=== PATIENT | male | born 1950 | race Caucasian/White ===

== ENCOUNTER 2017-12-22 16:40 | Emergency (ER) | payer BC, MEDICARE ==
[2017-12-22 17:10] VITALS: BP 123/88
[2017-12-22] MEDS ORDERED: Tetan/Diph/Pertus SYR(Tdap)* 0.5 ML SYR(BOOSTRIX) use SYR IM ONE (17:52)
--- NOTE | 2017-12-22 17:57 | UC ---
Lower Extremity/Ankle HPI - HPI Summary HPI Summary: 67 yo male stepped on a nail about 2 hours ago went thru sneaker minimal pain Td not up to date DM no renal issues - History of Current Complaint Chief Complaint: UCS[place] Stated Complaint: L FOOT SKIN COMLAINT Time Seen by Provider: 12/22/17 17:46 Hx Obtained From: Patient Onset/Duration: Sudden Onset Severity Initially: Mild Severity Currently: None Pain Intensity: 0 Pain Scale Used: 0-10 Numeric Aggravating Factor(s): Standing, Ambulation Alleviating Factor(s): Rest Able to Bear Weight: Yes - Allergies/Home Medications Allergies/Adverse Reactions: Allergies Allergy/AdvReac Type Severity Reaction Status Date / Time codeine AdvReac GI Verified 12/22/17 17:10 Home Medications: Home Medications Albuterol HFA INHALER* [Ventolin HFA Inhaler*] 2 puff INH Q4H PRN 12/22/17 [ History Confirmed 12/22/17] Ascorbic Acid TAB* [Vitamin C TAB*] 500 mg PO DAILY 12/22/17 [History Confirmed 12/22/17] Cholecalciferol (Vitamin D3) [Vitamin D3] 1,000 unit PO DAILY 12/22/17 [History Confirmed 12/22/17] Hydrochlorothiazide TAB* [Hydrodiuril TAB*] 25 mg PO DAILY 12/22/17 [History Confirmed 12/22/17] Losartan Potassium [Cozaar] 25 mg PO BEDTIME 12/22/17 [History Confirmed ] Magnesium Oxide [Magnesium] 250 mg PO DAILY 12/22/17 [History Confirmed 12/22/17 ] [place]il[place]-3 Fatty Acids/Fish Oil [Fish Oil 1200 mg] 1 cap PO DAILY 12/22/17 [ History Confirmed 12/22/17] Tiotropium CAP.INH* [Spiriva CAP.INH*] 2 cap.inh INH BID 12/22/17 [History Confirmed 12/22/17] Vitamin E CAP* 400 unit PO DAILY 12/22/17 [History Confirmed 12/22/17] metFORMIN* [Glucophage 500 MG TAB *] 500 mg PO BEDTIME 12/22/17 [History Confirmed 12/22/17] PMH/Surg Hx/FS Hx/Imm Hx Endocrine History: Diabetes, Dyslipidemia Cardiovascular History: Hypertension Respiratory History: Asthma - Surgical History Surgical History: Yes Surgery Procedure, Year, and Place: hydrocele - Social History Alcohol Use: Occasionally Substance Use Type: None Smoking Status (MU): Former Smoker When Did the Patient Quit Smoking/Using Tobacco: 30+ years ago Review of Systems Constitutional: Negative Skin: Negative Eyes: Negative ENT: Negative Respiratory: Negative Cardiovascular: Negative Gastrointestinal: Negative Genitourinary: Negative Motor: Negative Neurovascular: Negative Musculoskeletal: Negative Neurological: Negative Psychological: Negative Is Patient Immunocompromised?: No All Other Systems Reviewed And Are Negative: Yes Physical Exam Triage Information Reviewed: Yes Appearance: Well-Appearing, No Pain Distress, Well-Nourished Vital Signs: Initial Vital Signs Temp 98.9 F 12/22/17 17:03 Pulse 87 12/22/17 17:03 Resp 18 12/22/17 17:03 BP 123/88 12/22/17 17:03 Pulse Ox 96 12/22/17 17:03 Vital Signs Reviewed: Yes Eyes: Positive: Conjunctiva Clear ENT: Positive: Hearing grossly normal. Negative: Nasal congestion, Nasal drainage, Muffled voice, Hoarse voice Neck: Positive: Supple Respiratory: Positive: Lungs clear, Normal breath sounds, No respiratory distress Cardiovascular: Positive: RRR, No Murmur Musculoskeletal: Positive: ROM Intact, No Edema Neurological: Positive: Alert Psychological Exam: Normal Skin Exam: Other - PW left foot Lower Extremity Course/Dx - Differential Dx/Diagnosis Provider Diagnoses: plantar punture wound left foot Discharge - Sign-Out/Discharge Documenting (check all that apply): Discharge/Admit/Transfer - Discharge Plan Condition: Stable Disposition: HOME Prescriptions: Ciprofloxacin HCl [Cipro] 250 mg PO BID #14 tablet Patient Education Materials: Puncture Wound (ED) Referrals: Partha Wade MD [Primary Care Provider] - 5 Days Additional Instructions: recheck RACHEL for pain/swellling redness - Billing Disposition and Condition Condition: STABLE Disposition: HOME Images Feet (Multiple View): 1 - PW- plantar aspect left foot. normal gait. no tender
== END 2017-12-22 18:05 | disposition home or self-care (01) ==
LOC: UCCORT 16:40
DX: S91.332A Puncture wound without foreign body, left foot, initial encounter (principal); W22.8XXA Striking against or struck by other objects, initial encounter; Y92.9 Unspecified place or not applicable; Z23 Encounter for immunization; Z87.891 Personal history of nicotine dependence; Z88.5 Allergy status to narcotic agent
CPT/HCPCS: 90471; 90715; 99212; G0463

== ENCOUNTER 2018-05-16 13:56 | Emergency (ER) | payer BC ==
--- OUTSIDE RECORDS SUMMARY | 2018-05-16 15:05 | XMS REPORT | Continuity of Care Document ---
:1950 External Reference #:[id number] Author Name Partha Wade MD Address [address] [place] [address] Care Team Providers Name Role Partha Renae MD Primary Care Physician Unavailable Payers Type Date Identification Numbers Payment Provider Subscriber Policy Number: [id number] BCBS Ppo Micky Ordonez PayID: [id number] [address] [address] [place] [address] Advance Directives Description No Information Available Problems Date Description Provider Status Onset: 06/21/2012 Cardiomegaly Partha Wade MD Active Onset: 06/21/2012 Benign hypertensive heart disease without Partha Wade MD Active congestive heart failure Onset: 06/21/2012 Sleep apnea Partha Wade MD Active Onset: 06/21/2012 Benign prostatic hypertrophy with outflow Partha Wade MD Active obstruction Onset: 06/21/2012 Obesity Partha Wade MD Active Onset: 06/21/2012 Impaired fasting glycaemia Partha Wade MD Active Family History Date Family Member(s) Problem(s) Comments Father Heart Disease mi old age Mother Diabetes Mellitus, II Mother Heart Disease Mother Kidney Disease Social History Type Date Description Comments Sex Unknown Tobacco Use Start: Unknown End: Former Cigarette Smoker Unknown ETOH Use Occasionally consumes alcohol Tobacco Use Start: Unknown End: Patient is a former smoker Unknown Smoking Status Reviewed: 05/06/17 Patient is a former smoker Seat Belt/Car Seat Always uses a seat belt Currently Active The patient is currently sexually active Allergies, Adverse Reactions, Alerts Description No Known Drug Allergies Medications Medication Date Status Form Strength Qnty SIG Indications Ordering Provider Shingrix 10/19 Active Suspension 50mcg 2dose 1 dose Rec s intramuscu MD Mauro lar then repeat in 4 month Losartan 10/14 Active Tablets 25mg 90tab 1 by mouth Elyn s every day Ring, Zostavax 07/15 Active Solution [id number]/ 1unit injection Rec 0.65ML s as ordered Ring, Metformin HCL 08/29 Active Tablets 500mg 90tab 1 by mouth s every day Ring, Fish Oil 07/01 Active Capsules 1000mg as Directed Ring, Vitamin E 07/01 Active Capsules 400Unit qday Ring, Hydrochlorothiazi 01/20 Active Tablets 25mg 90tab 1 by mouth Elyn s every day Ring, Fibercon 04/02 Active Tablets 625mg 30tab 2 po qd El s Ring, Tylenol 11/10 Active Tablets 325mg 2 PO prn Ring, Albuterol Active Aerosol 90mcg/Dos 6unit 2 puff qid Unknown Inhalation /0000 e s Spiriva Active Capsules 18mcg 90cap one puff Elyn Handihaler / s every day Ring, Xarelto Active Tablets 20mg 1 by mouth Unknown /0000 every day Rythmol Active Tablets 225mg Unknown /0000 Tramadol HCL 01/28 Hx Tablets 50mg 40tab 1 by mouth s every 6 Ring, - hours as 10/19 [id number] Tramadol HCL 08/21 Hx Tablets 50mg 20tab qid prn s Shoulder Ring, - Pain 05/06 Amlodipine 09/23 Hx Tablets 10mg 90tab 1 by mouth Elyn Besylate s every day Ring, MD - 10/14 Nystatin-Triamcin 09/12 Hx Cream 671299-1. 30gm apply Elyn olone 1Unit/GM- affected Ring, - % area as 05/06 bid Scopolamine 04/11 Hx Patches 0.4mg/ml 5unit aplly 3 Elyn Hydrobromide s hrs before Ring, - travel and 04/25 change q day Amoxicillin 10/09 Hx Capsules 500mg 30cap 1 po tid s x 10 days Ring, MD - 05/09 Tramadol HCL 08/03 Hx Tablets 50mg 60tab 1 po q 6 s hours prn Ring, MD - pain 01/17 Doxycycline 07/06 Hx Capsules 100mg 42cap 1 po bid Elcl s For 3 Ring, MD - Weeks 08/03 Tramadol HCL 06/22 Hx Tablets 50mg 60tab 1 po q 6 s hours prn Ring, MD - pain 08/03 Vitamin C SR 06/30 Hx Capsules ER 500mg 90cap 1 po qd s Ring, MD - 06/30 Amoxicillin 06/30 Hx Capsules 500mg 30cap 1 po tid s x 10 days Ring, MD - 06/21 Scopolamine 03/31 Hx Patches 0.4mg/ml 5unit aplly 3 Elyn Hydrobromide s hrs before Ring, MD - travel and 06/30 change q day Lotrisone 01/20 Hx Lotion 1-0.05% 30ml apply to affected Ring, MD - area bid 06/21 Ceftin 01/20 Hx Tablets 500mg 20tab 1 po bid s Ring, MD - 07/01 Scopalamine Patch 12/11 Hx 0.33MH/24 8unit 1 patch 4 HRS s hrs prior Ring, MD - to travel 01/20 and q 3 days. Percocet 10/31 Hx Tablets 5-325mg 60tab 1 po q 4 s hours if Ring, - needed for 01/20 pain Ceftin 06/27 Hx Tablets 500mg 20tab 1 po bid s Ring, MD - 10/31 Mihai 06/27 Hx Tablets 5-20mg 45tab tab 1/2 by s mouth Ring, - every day 09/23 Fish Oil 04/02 Hx Capsules 1000mg 1 Cap bid Ring, MD - 06/27 Vitamin C 04/02 Hx Tablets 500mg 1 po qd Ring, MD - 06/27 Vitamin D 04/02 Hx Capsules 400Unit qd Ring, MD - 06/27 Vitamin E 04/02 Hx Capsules 400Unit qday Ring, MD Rosales 06/27 Calcium 600 + D 04/02 Hx Tablets 1 po qd Ring, MD Rosales 04/09 Medrol Dosepak 04/02 Hx Tablets 4mg 1tabs use as directed Ring, MD Rosales 04/09 Glucophage 05/12 Hx Tablets 500mg 90tab 1 PO qd s Ring, - 06/05 Doxycycline 05/12 Hx Tablets 100mg 20tab 1 PO bid s prn Ring, - 06/05 Amoxicillin 09/14 Hx Capsules 500mg 30cap 1 po tid s x 10 days Ring, - 09/22 Cortisporin 09/14 Hx Ointment 400U;3.5m 3.5gm as g;55007Z; directed Ring, MD - 10 bid 06/05 Augmentin 02/01 Hx Tablets 875mg;125 14tab 1 po bid 998.20 Remington Giraldo /Reynaldo mg s MD Anel - 02/02 Multivitamins 11/10 Hx Caplets Ring, - 06/27 Glucosamine Franc 11/10 Hx Tablets 1500 100ta 1 PO qd bs Ring, - 06/27 Rhinocort Aqua Hx Suspension 32mcg/Inh 3unit 1 [place] To Unknown Nasal [place] /0000 alation s Each Nare - qd prn 06/05 Symbicort Hx Aerosol 80-4.5mcg 1unit 2 puff bid Unknown /0000 /Act s - 04/25 Ventolin HFA 00 Hx Aerosol 108(90Bas 2 puff Unknown /0000 e) four times - mcg/Act a day as 05/06 Immunizations CPT Code Status Date Vaccine Lot # [id number] Given 10/08/2016 Pneumovax Polyvalent Inj Im [id number] 78613 Given 08/07/2016 Zostavax Q2037 Given 05/11/2016 Influenza Vaccine (Fluvirin) 3 Years Of Age Or Older 40868 Given 08/14/2015 Pneumococcal Conjugate Vaccine 13 Valent For [id number] Intramuscular Use Q2035 Given 04/25/2015 Influenza Virus (Afluria) Split Virus 3 Years Of [id number] Age And Older Q2036 Given 05/26/2013 Flulaval 27044 Given 04/18/2009 Tetanus,Diphtheria,Adut/Adol Pertussis 5433 75364 Given 06/05/2008 Influenza Vaccine 36557 77139 Given 05/31/2007 Influenza Vaccine 49368 65914 Given 05/20/2006 Influenza Vaccine 20041 84240 Given 02/13/1998 DT Immunization DIP/Tet (History Only) Vital Signs Date Vital Result Comment 10/19/2017 12:38pm BP Systolic 136 mmHg BP Diastolic 74 mmHg Height 74 inches 6'2" 05/06/2017 10:56am BP Systolic 110 mmHg BP Diastolic 68 mmHg Respiratory Rate 20 /min Weight 340.00 lb 01/28/2017 8:29am BP Systolic 110 mmHg BP Diastolic 80 mmHg Height 74 inches 6'2" Weight 353.00 lb per patient BMI (Body Mass Index) 45.3 kg/m2 10/08/2016 1:31pm BP Systolic 108 mmHg BP Diastolic 80 mmHg Height 74 inches 6'2" Weight 351.00 lb BMI (Body Mass Index) 45.1 kg/m2 08/21/2016 10:09am BP Systolic 132 mmHg BP Diastolic 80 mmHg 03/26/2016 1:48pm BP Systolic 120 mmHg BP Diastolic 64 mmHg Height 72 inches 6'0" Weight 346.00 lb BMI (Body Mass Index) 46.9 kg/m2 09/12/2015 2:28pm BP Systolic 124 mmHg BP Diastolic 70 mmHg Height 72 inches 6'0" Weight 334.00 lb BMI (Body Mass Index) 45.3 kg/m2 04/25/2015 3:44pm BP Systolic 130 mmHg BP Diastolic 82 mmHg Height 72 inches 6'0" Weight 339.00 lb BMI (Body Mass Index) 46.0 kg/m2 01/17/2015 3:34pm BP Systolic 118 mmHg BP Diastolic 70 mmHg Height 72 inches 6'0" Weight 343.00 lb BMI (Body Mass Index) 46.5 kg/m2 10/09/2014 3:22pm BP Systolic 128 mmHg BP Diastolic 76 mmHg Height 72 inches 6'0" Weight 370.00 lb BMI (Body Mass Index) 50.2 kg/m2 08/29/2014 3:19pm BP Systolic 130 mmHg BP Diastolic 80 mmHg Weight 353.00 lb 05/24/2014 4:34pm BP Systolic 122 mmHg BP Diastolic 78 mmHg 10/09/2013 2:15pm BP Systolic 132 mmHg BP Diastolic 70 mmHg Body Temperature 98.9 F 08/11/2013 2:55pm BP Systolic 122 mmHg BP Diastolic 70 mmHg 08/03/2013 3:46pm BP Systolic 120 mmHg BP Diastolic 70 mmHg Height 72 inches 6'0" Weight 372.00 lb BMI (Body Mass Index) 50.4 kg/m2 07/06/2012 12:05pm BP Systolic 130 mmHg BP Diastolic 80 mmHg Body Temperature 99.3 F 06/21/2012 4:00pm Weight 368.00 lb 06/21/2012 3:56pm BP Systolic 130 mmHg BP Diastolic 78 mmHg Height 72 inches 6'0" Weight 268.00 lb BMI (Body Mass Index) 36.3 kg/m2 06/30/2011 3:48pm BP Systolic 134 mmHg BP Diastolic 78 mmHg Height 72 inches 6'0" Weight 369.00 lb BMI (Body Mass Index) 50.0 kg/m2 12/29/2010 3:18pm BP Systolic 120 mmHg BP Diastolic 74 mmHg Height 72 inches 6'0" Weight 372.00 lb BMI (Body Mass Index) 50.4 kg/m2 07/01/2010 3:14pm BP Systolic 126 mmHg BP Diastolic 88 mmHg Weight 372.00 lb 01/20/2010 3:03pm BP Systolic 130 mmHg BP Diastolic 90 mmHg Weight 377.00 lb 10/31/2009 12:27pm BP Systolic 120 mmHg BP Diastolic 86 mmHg 06/27/2009 2:11pm BP Systolic 158 mmHg BP Diastolic 88 mmHg Height 72 inches 6'0" Weight 370.00 lb BMI (Body Mass Index) 50.2 kg/m2 04/18/2009 4:42pm BP Systolic 144 mmHg BP Diastolic 100 mmHg Weight 360.00 lb 04/09/2009 4:03pm BP Systolic 150 mmHg BP Diastolic 90 mmHg Weight 360.00 lb 04/02/2009 3:23pm BP Systolic 150 mmHg BP Diastolic 100 mmHg Weight 364.00 lb 06/05/2008 2:33pm BP Systolic 140 mmHg BP Diastolic 88 mmHg Height 72 inches 6'0" Weight 364.00 lb BMI (Body Mass Index) 49.4 kg/m2 05/31/2007 3:29pm BP Systolic 152 mmHg BP Diastolic 100 mmHg Height 72 inches 6'0" 05/12/2007 12:36pm BP Systolic 142 mmHg BP Diastolic 92 mmHg Body Temperature 98.5 F Height 72 inches 6'0" 09/22/2006 3:40pm BP Systolic 144 mmHg BP Diastolic 82 mmHg Height 72 inches 6'0" Weight 364.00 lb BMI (Body Mass Index) 49.4 kg/m2 09/14/2006 12:57pm Body Temperature 98.1 F Height 72 inches 6'0" 06/03/2006 3:31pm BP Systolic 138 mmHg BP Diastolic 84 mmHg Height 72 inches 6'0" 05/20/2006 2:58pm BP Systolic 126 mmHg BP Diastolic 70 mmHg Height 72 inches 6'0" Weight 352.00 lb BMI (Body Mass Index) 47.7 kg/m2 02/01/2006 2:26pm BP Systolic 134 mmHg BP Diastolic 80 mmHg Height 72 inches 6'0" 11/18/2005 3:48pm BP Systolic 138 mmHg BP Diastolic 88 mmHg Weight 360.00 lb Results Test Date Facility Test Result H/L Range Note General Health Panel 04/26/2018 [facility] TSH 2.94 mIU/L 0.40-4.50 [address] [facility] [address] [place] [address] [phone] T4,Free 1.0 ng/dL 0.8-1.8 CBC W/ Diff & PLT 04/26/2018 [facility] WBC 5.6 thous/L 3.8-10.8 [address] [place] [address] [phone] RBC 5.32 mill/L 4.20-5.80 Hemoglobin 15.9 g/dL 13.2-17.1 Hematocrit 47.9 % 38.5-50.0 MCV 90.0 FL 80.0-100.0 MCH 29.9 pg 27.0-33.0 MCHC 33.2 g/dL 32.0-36.0 RDW 13.7 % 11.0-15.0 Platelet Count 230 thous/L 140-400 MPV 8.1 FL 7.5-12.5 Neutrophils,Absolute 3190 cells/L 3208-1533 Bands,Absolute PENDING Metamyelocytes,Absolute PENDING Myelocytes,Absolute PENDING Promyelocytes,Absolute PENDING Lymphocytes,Absolute 1770 cells/L 850-3900 Monocytes,Absolute 530 cells/L 200-950 Eosinophils,Absolute 100 cells/L 15-500 Basophils,Absolute 20 cells/L 0-200 Blast Cells,Absolute PENDING Nucleated RBC,Absolute PENDING Total Neutrophils,% 57 % 40-75 Bands,% PENDING Metamyelocytes,% PENDING Myelocytes,% PENDING Promyelocytes,% PENDING Total Lymphocytes,% 31 % 12-47 Reactive Lymphocytes PENDING Monocytes,% 9 % 4-12 Eosinophils,% 2 % 0-4 Basophils,% 0 % 0-1 2 Blasts,% PENDING Nucleated RBC PENDING Comment PENDING Comp Metabolic Panel 04/26/2018 [facility] Sodium 140 mmol/L 135-[address] [place] [address] [phone] Potassium 4.4 mmol/L 3.5-5.3 Chloride 101 mmol/L 98-110 Carbon Dioxide 31 mmol/L 20-32 3 Calcium 9.4 mg/dL 8.6-10.3 Alkaline Phosphatase 46 U/L 40-115 Ast 17 U/L 10-35 Alt 22 U/L 9-46 Bilirubin,Total 0.8 mg/dL 0.2-1.2 Glucose 101 mg/dL High 65-99 4 Urea Nitrogen (BUN) 22 mg/dL 7-25 Creatinine 0.97 mg/dL 0.70-1.25 5 BUN/Creatinine Ratio 22.9 High 6-22 Protein,Total 7.1 g/dL 6.1-8.1 Albumin 4.4 g/dL 3.6-5.1 Globulin,Calculated 2.7 g/dL 1.9-3.7 A/G Ratio 1.6 1.0-2.5 Egfr Non-Afr. Nigerian 80 ML/MIN/1.73M2 > Or=60 Egfr 93 ML/MIN/1.73M2 > Or=60 Lipid Panel 3 04/26/2018 [facility] Cholesterol,Total PENDING [address] [place] [address] [phone] Triglycerides PENDING HDL Cholesterol PENDING LDL Chol,Calculated PENDING VLDL,Calculated PENDING Cholesterol/HDL Ratio PENDING Non-HDL Cholesterol PENDING Chylomicrons PENDING Beta Lipoproteins PENDING Pre-Beta Lipoproteins PENDING Alpha Lipoproteins PENDING Serum Appearance PENDING Interpretation PENDING Laboratory test 04/26/2018 [facility] Creatine 144 U/L 44-[address] [place] [address] [phone] Hemoglobin A1c 5.9 % High 0-5.6 6 PSA,Total 0.4 NG/ML < Or=4.0 7 Comp Metabolic Panel 10/12/2017 [facility] Sodium 142 mmol/L 135-[address] [place] [address] [phone] Potassium 3.8 mmol/L 3.5-5.3 Chloride 103 mmol/L 98-110 Carbon Dioxide 31 mmol/L 20-31 Calcium 9.0 mg/dL 8.6-10.3 Alkaline Phosphatase 48 U/L 40-115 Ast 16 U/L 10-35 Alt 21 U/L 9-46 Bilirubin,Total 0.6 mg/dL 0.2-1.2 Glucose 110 mg/dL High 65-99 8 Urea Nitrogen (BUN) 26 mg/dL High 7-25 Creatinine 0.96 mg/dL 0.70-1.25 9 BUN/Creatinine Ratio 26.7 High 6-22 Protein,Total 7.1 g/dL 6.1-8.1 Albumin 4.3 g/dL 3.6-5.1 Globulin,Calculated 2.8 g/dL 1.9-3.7 A/G Ratio 1.5 1.0-2.5 Egfr Non-Afr. Nigerian 81 ML/MIN/1.73M2 > Or=60 Egfr 94 ML/MIN/1.73M2 > Or=60 CBC W/ Diff & PLT 10/12/2017 [facility] WBC 5.3 thous/L 3.8-10.[address] [place] [address] [phone] RBC 5.23 mill/L 4.20-5.80 Hemoglobin 15.4 g/dL 13.2-17.1 Hematocrit 46.3 % 38.5-50.0 MCV 88.4 FL 80.0-100.0 MCH 29.4 pg 27.0-33.0 MCHC 33.2 g/dL 32.0-36.0 RDW 13.6 % 11.0-15.0 Platelet Count 207 thous/L 140-400 Platelet Sufficiency PENDING MPV 8.7 FL 7.5-12.5 Neutrophils,Absolute 3030 cells/L 6864-3100 Bands,Absolute PENDING Metamyelocytes,Absolute PENDING Myelocytes,Absolute PENDING Promyelocytes,Absolute PENDING Lymphocytes,Absolute 1700 cells/L 850-3900 Monocytes,Absolute 470 cells/L 200-950 Eosinophils,Absolute 80 cells/L 15-500 Basophils,Absolute 30 cells/L 0-200 Blast Cells,Absolute PENDING Nucleated RBC,Absolute PENDING Total Neutrophils,% 57 % 40-75 Bands,% PENDING Metamyelocytes,% PENDING Myelocytes,% PENDING Promyelocytes,% PENDING Total Lymphocytes,% 32 % 12-47 Monocytes,% 9 % 4-12 Eosinophils,% 2 % 0-4 Basophils,% 1 % 0-1 10 Blasts,% PENDING Nucleated RBC PENDING RBC Morphology PENDING Anisocytosis PENDING Poikilocytosis PENDING Microcytosis PENDING Macrocytosis PENDING Polychromasia PENDING Hypochromasia PENDING Target Cells PENDING Basophilic Stippling PENDING Comment PENDING Lipid Panel 10/12/2017 [facility] Cholesterol 161 mg/dL <[address] [place], [place] [id number] [phone] HDL Cholesterol 39 mg/dL Low >40 Cholesterol/HDL Ratio 4.1 CALC <5.0 LDL Chol,Calculated 97 mg/dL 0-100 11 Triglycerides 145 mg/dL <150 Non-HDL Cholesterol 122 mg/dL <130 12 Hepatic Function 10/12/2017 [facility] Alkaline Phosphatase 48 U/L 40- [address] [place] [address] [phone] Ast 16 U/L 10-35 Alt 21 U/L 9-46 Bilirubin,Total 0.6 mg/dL 0.2-1.2 Bilirubin,Direct 0.1 mg/dL < Or=0.2 Protein,Total 7.1 g/dL 6.1-8.1 Albumin 4.3 g/dL 3.6-5.1 Globulin,Calculated 2.8 g/dL 1.9-3.7 A/G Ratio 1.5 1.0-2.5 Laboratory test 10/12/2017 [facility] Creatine 153 U/L 44-[address] [place]ase,[place] [address] [phone] Hemoglobin A1c 6.0 % High 0-5.6 13 Basic Metabolic Panel 04/29/2017 [facility] Sodium 141 mmol/L 135-[address] [place] [address] [phone] Potassium 4.7 mmol/L 3.5-5.3 Chloride 104 mmol/L 98-110 Carbon Dioxide 29 mmol/L 20-31 Calcium 9.4 mg/dL 8.6-10.3 Glucose 96 mg/dL 65-99 14 Urea Nitrogen 17 mg/dL 7-25 Creatinine 1.01 mg/dL 0.70-1.25 15 BUN/Creatinine Ratio 16.6 6-22 Egfr Non-Afr. Nigerian 77 ML/MIN/1.73M2 > Or=60 Egfr 89 ML/MIN/1.73M2 > Or=60 Lipid Panel 04/29/2017 [facility] Cholesterol 164 mg/dL <[address] [place] [address] [phone] HDL Cholesterol 39 mg/dL Low >40 Cholesterol/HDL Ratio 4.2 CALC <5.0 LDL Chol,Calculated 99 mg/dL <100 16 Triglycerides 163 mg/dL High <150 Non-HDL Cholesterol 125 mg/dL <130 17 Laboratory test 04/29/2017 [facility] Hemoglobin A1c 5.7 % High 0-5.6 [address] [place] [address] [phone] Comp Metabolic 01/06/2017 [facility] Sodium 140 135-[address] mmol/[place] [address] [phone] Potassium 4.0 mmol/L 3.5-5.3 Chloride 101 mmol/L 98-110 Carbon Dioxide 29 mmol/L 20-31 Calcium 9.6 mg/dL 8.6-10.3 Alkaline Phosphatase 50 U/L 40-115 Ast 19 U/L 10-35 Alt 26 U/L 9-46 Bilirubin,Total 0.6 mg/dL 0.2-1.2 Glucose 100 mg/dL High 65-99 19 Urea Nitrogen 22 mg/dL 7-25 Creatinine 1.06 mg/dL 0.70-1.25 20 BUN/Creatinine Ratio 20.4 6-22 Protein,Total 7.4 g/dL 6.1-8.1 Albumin 4.5 g/dL 3.6-5.1 Globulin,Calculated 2.9 g/dL 1.9-3.7 A/G Ratio 1.6 1.0-2.5 Egfr Non-Afr. Nigerian 72 ML/MIN/1.73M2 > Or=60 Egfr 84 ML/MIN/1.73M2 > Or=60 Hepatic Function 01/06/2017 [facility] Alkaline Phosphatase 50 U/L 40- [address] [place] [address] [phone] Ast 19 U/L 10-35 Alt 26 U/L 9-46 Bilirubin,Total 0.6 mg/dL 0.2-1.2 Bilirubin,Direct 0.1 mg/dL < Or=0.2 Protein,Total 7.4 g/dL 6.1-8.1 Albumin 4.5 g/dL 3.6-5.1 Globulin,Calculated 2.9 g/dL 1.9-3.7 A/G Ratio 1.6 1.0-2.5 Laboratory test 01/06/2017 [facility] PSA,Total 0.5 NG/ML < Or=4.0 [address] [place] [address] [phone] Cholesterol 170 mg/dL 125-200 CBC W/ Diff & PLT 01/06/2017 [facility] WBC 6.1 thous/L 3.8-10.[address] [place] [address] [phone] RBC 5.29 mill/L 4.20-5.80 Hemoglobin 15.3 g/dL 13.2-17.1 Hematocrit 47.1 % 38.5-50.0 MCV 89.0 FL 80.0-100.0 MCH 28.9 pg 27.0-33.0 MCHC 32.5 g/dL 32.0-36.0 RDW 13.7 % 11.0-15.0 Platelet Count 219 thous/L 140-400 Platelet Sufficiency PENDING MPV 8.3 FL 7.5-12.5 Neutrophils,Absolute 3710 cells/L 7464-6330 Bands,Absolute PENDING Metamyelocytes,Absolute PENDING Myelocytes,Absolute PENDING Promyelocytes,Absolute PENDING Lymphocytes,Absolute 1780 cells/L 850-3900 Monocytes,Absolute 540 cells/L 200-950 Eosinophils,Absolute 90 cells/L 15-500 Basophils,Absolute 20 cells/L 0-200 Blast Cells,Absolute PENDING Nucleated RBC,Absolute PENDING Total Neutrophils,% 60 % 40-75 Bands,% PENDING Metamyelocytes,% PENDING Myelocytes,% PENDING Promyelocytes,% PENDING Total Lymphocytes,% 29 % 12-47 Monocytes,% 9 % 4-12 Eosinophils,% 1 % 0-4 Basophils,% 0 % 0-1 22 Blasts,% PENDING Nucleated RBC PENDING RBC Morphology PENDING Anisocytosis PENDING Poikilocytosis PENDING Microcytosis PENDING Macrocytosis PENDING Polychromasia PENDING Hypochromasia PENDING Target Cells PENDING Basophilic Stippling PENDING Comment PENDING General Health Panel 01/06/2017 [facility] TSH 3.57 mIU/L 0.40-4.[address] [place] [address] [phone] T4,Free 1.0 ng/dL 0.8-1.8 Laboratory test 09/15/2016 [facility] Hemoglobin A1c 6.0 % High 0.0-5.6 [address] [place] [address] [phone] Basic Metabolic 09/15/2016 [facility] Sodium 142 135-[address] mmol/[place] [address] [phone] Potassium 4.5 mmol/L 3.5-5.3 Chloride 102 mmol/L 98-110 Carbon Dioxide 33 mmol/L High 20-31 Calcium 9.5 mg/dL 8.6-10.3 Glucose 101 mg/dL High 65-99 24 Urea Nitrogen 15 mg/dL 7-25 Creatinine 1.01 mg/dL 0.70-1.25 25 BUN/Creatinine Ratio 15.2 6-22 Egfr Non-Afr. Nigerian 77 ML/MIN/1.73M2 > Or=60 Egfr 89 ML/MIN/1.73M2 > Or=60 BMP W/O Egfr 03/12/2016 [facility] Sodium 138 mmol/L 135-[address] [place] [id number] [phone] Potassium 4.9 mmol/L 3.5-5.3 Chloride 103 mmol/L 98-110 Carbon Dioxide 26 mmol/L 19-30 Calcium 9.3 mg/dL 8.6-10.3 Glucose 98 mg/dL 65-99 26 Urea Nitrogen 24 mg/dL 7-25 Creatinine 1.10 mg/dL 0.70-1.25 27 BUN/Creatinine Ratio 21.4 6-22 Lipid Panel 03/12/2016 [facility] Cholesterol 169 mg/dL 125-[address] [place] [address] [phone] HDL Cholesterol 40 mg/dL > Or=40 Cholesterol/HDL Ratio 4.2 < Or=5.0 LDL Chol,Calculated 100 mg/dL <130 28 Triglycerides 146 mg/dL <150 Non-HDL Cholesterol 129 mg/dL 29 Hepatic Function 03/12/2016 [facility] Alkaline Phosphatase 49 U/L 40- [address] [place] [address] [phone] Ast 18 U/L 10-35 Alt 22 U/L 9-46 Bilirubin,Total 0.5 mg/dL 0.2-1.2 Bilirubin,Direct 0.1 mg/dL < Or=0.2 Protein,Total 7.0 g/dL 6.1-8.1 Albumin 4.3 g/dL 3.6-5.1 Globulin,Calculated 2.7 g/dL 1.9-3.7 A/G Ratio 1.6 1.0-2.5 Laboratory test 03/12/2016 [facility] Creatine 141 U/L 44-[address] [place] [address] [phone] Hemoglobin A1c 5.9 % High 0.0-5.6 30 Laboratory test 08/21/2015 [facility] Hemoglobin A1c 6.2 % High 0.0-5.6 [address] [place] [address] [phone] PSA,Total 0.5 NG/ML 0.0-4.0 32 Hepatic Function 08/21/2015 [facility] Alkaline Phosphatase 53 U/L 40- [address] [place] [id number] [phone] Ast 22 U/L 10-35 Alt 23 U/L 9-46 Bilirubin,Total 0.8 mg/dL 0.2-1.2 Bilirubin,Direct 0.1 mg/dL < Or=0.2 Protein,Total 7.2 g/dL 6.1-8.1 Albumin 4.4 g/dL 3.6-5.1 Globulin,Calculated 2.8 g/dL 1.9-3.7 A/G Ratio 1.5 1.0-2.5 Lipid Panel 08/21/2015 [facility] Cholesterol 171 mg/dL 125-200 [address] [facility] [place] [address] [phone] HDL Cholesterol 48 mg/dL > Or=40 Cholesterol/HDL Ratio 3.6 < Or=5.0 LDL Chol,Calculated 100 mg/dL <130 33 Triglycerides 113 mg/dL <150 Non-HDL Cholesterol 123 mg/dL 34 CBC W/ Diff & PLT 08/21/2015 [facility] WBC 5.9 thous/L 3.8-10.[address] [place] [address] [phone] RBC 5.10 mill/L 4.20-5.80 Hemoglobin 14.8 g/dL 13.2-17.1 Hematocrit 44.7 % 38.5-50.0 MCV 87.6 FL 80.0-100.0 MCH 28.9 pg 27.0-33.0 MCHC 33.0 g/dL 32.0-36.0 RDW 13.1 % 11.0-15.0 Platelet Count 216 thous/L 140-400 Platelet Sufficiency PENDING MPV 8.4 FL 7.5-11.5 Neutrophils,Absolute 3230 cells/L 5673-3470 Bands,Absolute PENDING Metamyelocytes,Absolute PENDING Myelocytes,Absolute PENDING Promyelocytes,Absolute PENDING Lymphocytes,Absolute 1940 cells/L 850-3900 Monocytes,Absolute 590 cells/L 200-950 Eosinophils,Absolute 150 cells/L 15-500 Basophils,Absolute 20 cells/L 0-200 Blast Cells,Absolute PENDING Nucleated RBC,Absolute PENDING Total Neutrophils,% 55 % 40-75 Bands,% PENDING Metamyelocytes,% PENDING Myelocytes,% PENDING Promyelocytes,% PENDING Total Lymphocytes,% 33 % 12-47 Monocytes,% 10 % 4-12 Eosinophils,% 2 % 0-4 Basophils,% 0 % 0-1 35 Blasts,% PENDING Nucleated RBC PENDING RBC Morphology PENDING Anisocytosis PENDING Poikilocytosis PENDING Microcytosis PENDING Macrocytosis PENDING Polychromasia PENDING Hypochromasia PENDING Target Cells PENDING Basophilic Stippling PENDING Comment PENDING CMP W/O Egfr 08/21/2015 [facility] Sodium 140 mmol/L 135-[address] [place], [place] [id number] [phone] Potassium 3.7 mmol/L 3.5-5.3 Chloride 101 mmol/L 98-110 Carbon Dioxide 28 mmol/L 19-30 Calcium 9.1 mg/dL 8.6-10.3 Alkaline Phosphatase 53 U/L 40-115 Ast 22 U/L 10-35 Alt 23 U/L 9-46 Bilirubin,Total 0.8 mg/dL 0.2-1.2 Glucose 102 mg/dL High 65-99 36 Urea Nitrogen 21 mg/dL 7-25 Creatinine 1.03 mg/dL 0.70-1.25 37 BUN/Creatinine Ratio 20.2 6-22 Protein,Total 7.2 g/dL 6.1-8.1 Albumin 4.4 g/dL 3.6-5.1 Globulin,Calculated 2.8 g/dL 1.9-3.7 A/G Ratio 1.5 1.0-2.5 General Health Panel 08/21/2015 [facility] TSH 3.08 mIU/L 0.40-4.[address] [place], [place] [id number] [phone] T4,Free 1.0 ng/dL 0.8-1.8 BMP W/O Egfr 04/18/2015 [facility] Sodium 141 mmol/L 135-[address] [place] [address] [phone] Potassium 4.6 mmol/L 3.5-5.3 Chloride 103 mmol/L 98-110 Carbon Dioxide 28 mmol/L 19-30 Calcium 9.5 mg/dL 8.6-10.3 Glucose 101 mg/dL High 65-99 38 Urea Nitrogen 19 mg/dL 7-25 Creatinine 1.15 mg/dL 0.70-1.25 39 BUN/Creatinine Ratio 16.5 6-22 Laboratory test 04/18/2015 [facility] Hemoglobin A1c 5.6 % 0.0-5.6 [address] [place] [address] [phone] BMP W/O Egfr 01/10/2015 [facility] Sodium 143 mmol/L 135-[address] [place] [address] [phone] Potassium 4.9 mmol/L 3.5-5.3 Chloride 105 mmol/L 98-110 Carbon Dioxide 27 mmol/L 19-30 Calcium 9.3 mg/dL 8.6-10.3 Glucose 98 mg/dL 65-99 41 Urea Nitrogen 23 mg/dL 7-25 Creatinine 1.05 mg/dL 0.70-1.25 42 BUN/Creatinine Ratio 22.1 High 6-22 Laboratory test 01/10/2015 [facility] Hemoglobin A1c 5.9 % High 0.0-5.6 [address] [place] [address] [phone] Hepatic Function 01/10/2015 [facility] Alkaline 44 U/L 40-[address] [place] [address] [phone] Ast 19 U/L 10-35 Alt 23 U/L 9-46 Bilirubin,Total 0.6 mg/dL 0.2-1.2 Bilirubin,Direct 0.1 mg/dL < Or=0.2 Protein,Total 7.0 g/dL 6.1-8.1 Albumin 4.4 g/dL 3.6-5.1 Globulin,Calculated 2.6 g/dL 1.9-3.7 A/G Ratio 1.7 1.0-2.5 [facility] W/O Egfr 10/02/2014 [facility] Sodium 142 mmol/L 135-[address] [place] [address] [phone] Potassium 4.4 mmol/L 3.5-5.3 Chloride 101 mmol/L 98-110 Carbon Dioxide 30 mmol/L 19-30 Calcium 9.7 mg/dL 8.6-10.3 Glucose 113 mg/dL High 65-99 44 Urea Nitrogen 22 mg/dL 7-25 Creatinine 1.07 mg/dL 0.70-1.25 45 BUN/Creatinine Ratio 20.4 6-22 Laboratory test 10/02/2014 [facility] PSA,Total 0.3 NG/ML 0.0-4.0 [address] [place] [address] [phone] TSH & T4,Free 08/20/2014 [facility] TSH 3.43 mIU/L 0.40-4.[address] [place], [place] [id number] [phone] T4,Free 0.9 ng/dL 0.8-1.8 CBC W/ Diff & PLT 08/20/2014 [facility] WBC 5.9 thous/L 3.8-10.[address] [place], [place] [id number] [phone] RBC 4.86 mill/L 4.20-5.80 Hemoglobin 14.6 g/dL 13.2-17.1 Hematocrit 42.6 % 38.5-50.0 MCV 87.7 FL 80.0-100.0 MCH 30.0 pg 27.0-33.0 MCHC 34.3 g/dL 32.0-36.0 RDW 13.1 % 11.0-15.0 Platelet Count 201 thous/L 140-400 Platelet Sufficiency PENDING Neutrophils,Absolute 3380 cells/L 4315-0611 Bands,Absolute PENDING Metamyelocytes,Absolute PENDING Myelocytes,Absolute PENDING Promyelocytes,Absolute PENDING Lymphocytes,Absolute 1800 cells/L 850-3900 Monocytes,Absolute 550 cells/L 200-950 Eosinophils,Absolute 110 cells/L 15-500 Basophils,Absolute 20 cells/L 0-200 Blast Cells,Absolute PENDING Nucleated RBC,Absolute PENDING Total Neutrophils,% 58 % Not Established Bands,% PENDING Metamyelocytes,% PENDING Myelocytes,% PENDING Promyelocytes,% PENDING Total Lymphocytes,% 31 % Not Established Monocytes,% 9 % Not Established Eosinophils,% 2 % Not Established Basophils,% 0 % Not Established Blasts,% PENDING Nucleated RBC PENDING RBC Morphology PENDING Anisocytosis PENDING Poikilocytosis PENDING Microcytosis PENDING Macrocytosis PENDING Polychromasia PENDING Hypochromasia PENDING Target Cells PENDING Basophilic Stippling PENDING Comment PENDING Laboratory test 08/20/2014 [facility] Hemoglobin A1c 6.6 % High 0.0-5.6 [address] [place] [address] [phone] Hepatic Function 08/20/2014 [facility] Alkaline 50 U/L 40-[address] [place] [address] [phone] Ast 25 U/L 10-35 Alt 36 U/L 9-46 Bilirubin,Total 0.5 mg/dL 0.2-1.2 Bilirubin,Direct 0.1 mg/dL < Or=0.2 Protein,Total 6.9 g/dL 6.1-8.1 Albumin 4.1 g/dL 3.6-5.1 Globulin,Calculated 2.8 g/dL 1.9-3.7 A/G Ratio 1.5 1.0-2.5 Lipid Panel 08/20/2014 [facility] Cholesterol 171 mg/dL 125-[address] [place] [address] [phone] HDL Cholesterol 45 mg/dL > Or=40 Cholesterol/HDL Ratio 3.8 < Or=5.0 LDL Chol,Calculated 95 mg/dL <130 48 Triglycerides 155 mg/dL High <150 Non-HDL Cholesterol 127 mg/dL 49 Comp Metabolic Panel 08/20/2014 [facility] Sodium 140 mmol/L 135-[address] [place] [address] [phone] Potassium 4.0 mmol/L 3.5-5.3 Chloride 102 mmol/L 98-110 Carbon Dioxide 28 mmol/L 19-30 Calcium 9.1 mg/dL 8.6-10.3 Alkaline Phosphatase 50 U/L 40-115 Ast 25 U/L 10-35 Alt 36 U/L 9-46 Bilirubin,Total 0.5 mg/dL 0.2-1.2 Glucose 121 mg/dL High 65-99 50 Urea Nitrogen 18 mg/dL 7-25 Creatinine 0.96 mg/dL 0.70-1.25 51 BUN/Creatinine Ratio 18.9 6-22 Protein,Total 6.9 g/dL 6.1-8.1 Albumin 4.1 g/dL 3.6-5.1 Globulin,Calculated 2.8 g/dL 1.9-3.7 A/G Ratio 1.5 1.0-2.5 Egfr Non-Afr. Nigerian 83 ML/MIN/1.73M2 > Or=60 Egfr 96 ML/MIN/1.73M2 > Or=60 BMP W/O Egfr 04/13/2014 [facility] Sodium 140 mmol/L 135-[address] [place], [place] [id number] [phone] Potassium 4.5 mmol/L 3.5-5.3 Chloride 102 mmol/L 98-110 Carbon Dioxide 29 mmol/L 19-30 Calcium 9.1 mg/dL 8.6-10.3 Glucose 104 mg/dL High 65-99 52 Urea Nitrogen 21 mg/dL 7-25 Creatinine 1.00 mg/dL 0.70-1.25 53 BUN/Creatinine Ratio 20.7 6-22 Laboratory test 04/13/2014 [facility] Hemoglobin A1c 6.1 % High 0.0-5.6 [address] [place] [id number] [phone] Laboratory test 12/19/2013 [facility] Polyp Colon See Note [address] [place] [address] [phone] Laboratory test 07/21/2013 [facility] PSA,Total 0.6 NG/ML 0.0-4.0 [address] [place] [address] [phone] Vitamin D, 25 07/21/2013 [facility] Vitamin 30 ng/mL 30-[address] D,25-Oh,[place] [address] [phone] Vitamin D,25-Oh,D3 30 ng/mL Vitamin D,25-Oh,D2 <4 ng/mL 57 TSH & T4,Free 07/21/2013 [facility] TSH 2.87 mIU/L 0.40-4.[address] [place] [address] [phone] T4,Free 1.1 ng/dL 0.8-1.8 CBC W/ Diff & PLT 07/21/2013 [facility] WBC 5.9 thous/L 3.8-10.8 [address] [place] [address] [phone] RBC 4.77 mill/L 4.20-5.80 Hemoglobin 14.1 g/dL 13.2-17.1 Hematocrit 41.7 % 38.5-50.0 MCV 87.4 FL 80.0-100.0 MCH 29.5 pg 27.0-33.0 MCHC 33.8 g/dL 32.0-36.0 RDW 13.0 % 11.0-15.0 Platelet Count 225 thous/L 140-400 Neutrophils,Absolute 3210 cells/L 8111-6335 Lymphocytes,Absolute 1920 cells/L 850-3900 Monocytes,Absolute 620 cells/L 200-950 Eosinophils,Absolute 170 cells/L 15-500 Basophils,Absolute 30 cells/L 0-200 Total Neutrophils,% 54 % 38-80 Total Lymphocytes,% 32 % 15-49 Monocytes,% 10 % 0-13 Eosinophils,% 3 % 0-8 Basophils,% 1 % 0-2 Comp Metabolic Panel 07/21/2013 [facility] Sodium 141 mmol/L 135-146 [address] [place] [address] [phone] Potassium 3.7 mmol/L 3.5-5.3 Chloride 103 mmol/L 98-110 Carbon Dioxide 28 mmol/L 19-30 Calcium 8.9 mg/dL 8.6-10.3 Alkaline Phosphatase 48 U/L 40-115 Ast 30 U/L 10-35 Alt 37 U/L 9-46 Bilirubin,Total 0.6 mg/dL 0.2-1.2 Glucose 109 mg/dL High 65-99 58 Urea Nitrogen 20 mg/dL 7-25 Creatinine 1.00 mg/dL 0.70-1.25 59 BUN/Creatinine Ratio 20.3 6-22 Protein,Total 6.8 g/dL 6.1-8.1 Albumin 4.2 g/dL 3.6-5.1 Globulin,Calculated 2.6 g/dL 1.9-3.7 A/G Ratio 1.6 1.0-2.5 Egfr Non-Afr. Nigerian 79 ML/MIN/1.73M2 > Or=60 Egfr 92 ML/MIN/1.73M2 > Or=60 Laboratory test 07/21/2013 [facility] Creatine 283 U/L High 44-[address] Kinase,[place] [address] [phone] Hemoglobin A1c 6.3 % High 0.0-5.6 60 Liver Panel 07/21/2013 [facility] Alkaline Phosphatase 48 U/L 40-[address] [place] [id number] [phone] GGT 27 U/L 3-70 Ast 30 U/L 10-35 Alt 37 U/L 9-46 LD 174 U/L 120-250 Bilirubin,Total 0.6 mg/dL 0.2-1.2 Bilirubin,Direct 0.1 mg/dL < Or=0.2 Protein,Total 6.8 g/dL 6.1-8.1 Albumin 4.2 g/dL 3.6-5.1 Cholesterol 177 mg/dL 125-200 Lipid Panel 07/21/2013 [facility] Cholesterol 177 mg/dL 125-[address] [place] [address] [phone] HDL Cholesterol 46 mg/dL > Or=40 Cholesterol/HDL Ratio 3.8 < Or=5.0 LDL Chol,Calculated 105 mg/dL <130 61 Triglycerides 130 mg/dL <150 Non-HDL Cholesterol 132 mg/dL 62 Laboratory test 06/28/2012 [facility] PSA,Total 0.3 NG/ML 0.0-4.0 [address] [place] [address] [phone] Vitamin D, 25 06/15/2012 [facility] Vitamin 23 ng/mL Low 30-[address] D,25-Oh,[place] [address] [phone] Vitamin D,25-Oh,D3 23 ng/mL Vitamin D,25-Oh,D2 <4 ng/mL 64 TSH & T4,Free 06/15/2012 [facility] TSH 2.30 mIU/L 0.40-4.[address] [place], [place] [id number] [phone] T4,Free 0.9 ng/dL 0.8-1.8 Comp Metabolic Panel 06/15/2012 [facility] Sodium 141 mmol/L 135-[address] [place] [address] [phone] Potassium 4.7 mmol/L 3.5-5.3 Chloride 102 mmol/L 98-110 Carbon Dioxide 30 mmol/L 21-33 Calcium 9.9 mg/dL 8.6-10.3 Alkaline Phosphatase 59 U/L 40-115 Ast 24 U/L 10-35 Alt 27 U/L 9-60 Bilirubin,Total 0.5 mg/dL 0.2-1.2 Glucose 104 mg/dL High 65-99 65 Urea Nitrogen 22 mg/dL 7-25 Creatinine 1.04 mg/dL 0.70-1.25 66 BUN/Creatinine Ratio 20.7 6-22 Protein,Total 7.5 g/dL 6.2-8.3 Albumin 4.4 g/dL 3.6-5.1 Globulin,Calculated 3.1 g/dL 2.1-3.7 A/G Ratio 1.4 1.0-2.1 Egfr Non-Afr. Nigerian 76 ML/MIN/1.73M2 > Or=60 Egfr 88 ML/MIN/1.73M2 > Or=60 CBC W/ Diff & PLT 06/15/2012 [facility] WBC 5.5 thous/L 3.8-10.8 [address] [facility] [place] [address] [phone] RBC 4.94 mill/L 4.20-5.80 Hemoglobin 14.9 g/dL 13.2-17.1 Hematocrit 44.3 % 38.5-50.0 MCV 89.8 FL 80.0-100.0 MCH 30.2 pg 27.0-33.0 MCHC 33.7 g/dL 32.0-36.0 RDW 13.4 % 11.0-15.0 Platelet Count 236 thous/L 140-400 Neutrophils,Absolute 3250 cells/L 1224-2938 Lymphocytes,Absolute 1580 cells/L 850-3900 Monocytes,Absolute 520 cells/L 200-950 Eosinophils,Absolute 80 cells/L 15-500 Basophils,Absolute 30 cells/L 0-200 Total Neutrophils,% 60 % 38-80 Total Lymphocytes,% 29 % 15-49 Monocytes,% 10 % 0-13 Eosinophils,% 2 % 0-8 Basophils,% 1 % 0-2 Laboratory test 06/15/2012 [facility] Creatine 309 U/L High 44-[address] Kinase,Total [place], [place] [id number] [phone] Hemoglobin A1c 5.8 % High 0.0-5.6 67 Liver Panel 06/15/2012 [facility] Alkaline Phosphatase 59 U/L 40-[address] [place], [place] [id number] [phone] GGT 25 U/L 3-70 Ast 24 U/L 10-35 Alt 27 U/L 9-60 LD 189 U/L 120-250 Bilirubin,Total 0.5 mg/dL 0.2-1.2 Bilirubin,Direct 0.1 mg/dL < Or=0.2 Protein,Total 7.5 g/dL 6.2-8.3 Albumin 4.4 g/dL 3.6-5.1 Cholesterol 180 mg/dL 125-200 Lipid Panel 06/15/2012 [facility] Cholesterol 180 mg/dL 125-[address] [place] [address] [phone] HDL Cholesterol 46 mg/dL > Or=40 Cholesterol/HDL Ratio 3.9 < Or=5.0 LDL Chol,Calculated 109 mg/dL <130 68 Triglycerides 127 mg/dL <150 Non-HDL Cholesterol 134 mg/dL 69 Comp Metabolic Panel 06/22/2011 [facility] Sodium 140 mmol/L 135-[address] [place], [place] [id number] [phone] Potassium 3.8 mmol/L 3.5-5.3 Chloride 101 mmol/L 98-110 Carbon Dioxide 29 mmol/L 21-33 Calcium 8.8 mg/dL 8.6-10.2 Alkaline Phosphatase 51 U/L 40-115 Ast 23 U/L 10-35 Alt 33 U/L 9-60 Bilirubin,Total 0.5 mg/dL 0.2-1.2 Glucose 109 mg/dL High 65-99 70 Urea Nitrogen 24 mg/dL 7-25 Creatinine 1.13 mg/dL 0.76-1.46 BUN/Creatinine Ratio 20.8 6-22 Protein,Total 7.0 g/dL 6.2-8.3 Albumin 4.3 g/dL 3.6-5.1 Globulin,Calculated 2.7 g/dL 2.1-3.7 A/G Ratio 1.6 1.0-2.1 Egfr Non-Afr. Nigerian 69 ML/MIN/1.73M2 > Or=60 Egfr 80 ML/MIN/1.73M2 > Or=60 Laboratory test 06/22/2011 [facility] PSA,Total 0.3 NG/ML 0.0-4.0 [address] [place] [address] [phone] Lipid Panel 06/22/2011 [facility] Cholesterol 188 mg/dL 125-[address] [place] [address] [phone] HDL Cholesterol 43 mg/dL > Or=40 Cholesterol/HDL Ratio 4.4 < Or=5.0 LDL Chol,Calculated 110 mg/dL <130 72 Triglycerides 173 mg/dL High <150 TSH & T4,Free 06/22/2011 [facility] TSH,3RD 2.44 mIU/L 0.40-4.[address] [place] [address] [phone] T4,Free 1.0 ng/dL 0.8-1.8 Hepatic Function 06/22/2011 [facility] Alkaline Phosphatase 51 U/L 40- [address] [place] [address] [phone] Ast 23 U/L 10-35 Alt 33 U/L 9-60 Bilirubin,Total 0.5 mg/dL 0.2-1.2 Bilirubin,Direct 0.1 mg/dL < Or=0.2 Protein,Total 7.0 g/dL 6.2-8.3 Albumin 4.3 g/dL 3.6-5.1 Globulin,Calculated 2.7 g/dL 2.1-3.7 A/G Ratio 1.6 1.0-2.1 CBC W/ Diff & PLT 06/22/2011 [facility] WBC 6.4 thous/L 3.8-10.[address] [place] [address] [phone] RBC 4.86 mill/L 4.20-5.80 Hemoglobin 14.8 g/dL 13.2-17.1 Hematocrit 43.5 % 38.5-50.0 MCV 89.5 FL 80.0-100.0 MCH 30.4 pg 27.0-33.0 MCHC 34.0 g/dL 32.0-36.0 RDW 13.4 % 11.0-15.0 Platelet Count 214 thous/L 140-400 Neutrophils,Absolute 3580 cells/L 8462-4643 Lymphocytes,Absolute 2150 cells/L 850-3900 Monocytes,Absolute 530 cells/L 200-950 Eosinophils,Absolute 110 cells/L 15-500 Basophils,Absolute 40 cells/L 0-200 Total Neutrophils,% 56 % 38-80 Total Lymphocytes,% 34 % 15-49 Monocytes,% 8 % 0-13 Eosinophils,% 2 % 0-8 Basophils,% 1 % 0-2 Basic Metabolic Panel 12/22/2010 [facility] Sodium 139 mmol/L 135-[address] [place] [address] [phone] Potassium 4.6 mmol/L 3.5-5.3 Chloride 102 mmol/L 98-110 Carbon Dioxide 28 mmol/L 21-33 Calcium 9.4 mg/dL 8.6-10.2 Glucose 108 mg/dL High 65-99 73 Urea Nitrogen 22 mg/dL 7-25 Creatinine 1.19 mg/dL 0.76-1.46 BUN/Creatinine Ratio 18.7 6-22 Egfr Non-Afr. Nigerian 66 ML/MIN/1.73M2 > Or=60 Egfr 76 ML/MIN/1.73M2 > Or=60 Lipid Panel 12/22/2010 [facility] Cholesterol 168 mg/dL 125-[address] [place] [address] [phone] HDL Cholesterol 42 mg/dL > Or=40 Cholesterol/HDL Ratio 4.0 < Or=5.0 LDL Chol,Calculated 107 mg/dL <130 74 Triglycerides 94 mg/dL <150 Vitamin D, 25 12/22/2010 [facility] Vitamin 24 ng/mL Low 30-[address] D,25-Oh,[place] [address] [phone] Vitamin D,25-Oh,D3 24 ng/mL Vitamin D,25-Oh,D2 <4 ng/mL 75 Laboratory test 12/22/2010 [facility] Hemoglobin A1c 6.0 % High 0.0-5.6 [address] [place] [address] [phone] Liver Function 05/31/2010 [facility] Total Protein 7.7 g/dL 6.3-8.[address] [place] [address] [phone] Albumin 3.6 g/dL 3.5-5.0 Bilirubin,Total 0.5 mg/dL 0.2-1.2 Bilirubin,Direct 0.1 mg/dL 0.1-0.4 Bilirubin,Indirect 0.4 mg/dL 0.0-0.9 Sgot/Ast 25 U/L 16-40 SGPT/Alt 55 U/L 30-65 Alkaline Phosphatase 68 U/L 50-136 Globulin 4.1 gm/dL 1.9-4.3 Alb/Glob 0.9 Comprehensive 05/31/2010 [facility] Glucose 107 mg/ dL 76-115 Metabolic Panel [address] [place] [address] [phone] BUN 19 mg/dL 5-23 Creatinine 1.1 mg/dL 0.5-1.4 Glom Filtration Rate, Estimate >60 mL/min >60 If >60 mL/min >60 77 BUN/Creat 17.2 Sodium 143 mEq/L 136-145 Potassium 3.9 mEq/L 3.5-5.1 Chloride 106 mEq/L 98-107 Carbon Dioxide 28 mEq/L 21-32 Anion Gap 13 mEq/L 8-16 Calcium 8.9 mg/dL 8.5-10.1 Total Protein 7.7 g/dL 6.3-8.0 Albumin 3.6 g/dL 3.5-5.0 Globulin 4.1 gm/dL 1.9-4.3 Alb/Glob 0.9 Bilirubin,Total 0.5 mg/dL 0.2-1.2 Sgot/Ast 25 U/L 16-40 SGPT/Alt 55 U/L 30-65 Alkaline Phosphatase 68 U/L 50-136 LDL Cholesterol 05/31/2010 [facility] Cholesterol 174 mg/dL 120-[address] [place] [address] [phone] Triglycerides 132 mg/dL 0-210 HDL Cholesterol 38 mg/dL 32-96 LDL-Cholesterol 110 mg/dL 62-185 Laboratory 05/31/2010 [facility] Glycohemoglobin A1c 6.1 % High 4.8-6.0 78 test finding [address] [place], [place] [id number] [phone] CBS 05/31/2010 [facility] White Blood Count 5.7 3.4-10.5 W/Automated [address] K/uL Diff [place], [place] [id number] [phone] Red Blood Count 4.85 M/uL 4.20-5.80 Hemoglobin 14.7 gm/dL 12.8-17.0 Hematocrit 42.6 % 38.0-48.0 Mean Cell Volume 87.8 fl 80.0-96.0 Mean Corpuscular HGB 30.3 pg 27.0-33.0 Mean Corpuscular HGB Conc 34.5 g/dL 31.7-36.0 Platelet Count 248 K/uL 150-400 Red Cell Distri Width %CV 12.5 % 11.6-15.8 Mean Platelet Volume 9.7 fL 6.6-10.6 Neut% 53.9 % 33.0-73.0 Lymph % 33.6 % 17.0-56.0 Archuleta % 10.0 % 0.0-10.0 Eo% 2.1 % 0.0-5.0 Bas% 0.4 % 0.1-1.0 Neut# 3.1 K/uL 1.8-7.0 Lymph # 1.9 K/uL 1.2-4.0 Archuleta # 0.6 K/uL 0.0-0.6 Eos # 0.1 K/uL 0.0-0.5 Baso # 0.0 K/uL Low 0.1-0.2 Red Cell Distri Width SD 39.8 fl 36-51 Laboratory test 05/31/2010 [facility] Prostate 0.3 ng /mL 0-4.0 [address] [place] [address] Antigen [phone] Basic Metabolic 01/14/2010 [facility] Sodium 140 mmol/L 135-[address] [place] [address] [phone] Potassium 4.7 mmol/L 3.5-5.3 Chloride 104 mmol/L 98-110 Carbon Dioxide 26 mmol/L 21-33 Calcium 8.9 mg/dL 8.6-10.2 Glucose 106 mg/dL High 65-99 80 Urea Nitrogen 25 mg/dL 7-25 Creatinine 1.06 mg/dL 0.76-1.46 BUN/Creatinine Ratio 23.5 High 6-22 Egfr Non-Afr. Nigerian >60 ML/MIN/1.73M2 > Or=60 Egfr >60 ML/MIN/1.73M2 > Or=60 Comp Metabolic Panel 06/21/2009 [facility] Sodium 141 mmol/L 135-[address] [place] [address] [phone] Potassium 4.9 mmol/L 3.5-5.3 Chloride 103 mmol/L 98-110 Carbon Dioxide 28 mmol/L 21-33 Calcium 9.5 mg/dL 8.6-10.2 Alkaline Phosphatase 58 U/L 40-115 Ast 22 U/L 10-35 Alt 32 U/L 9-60 Bilirubin,Total 0.6 mg/dL 0.2-1.2 Glucose 90 mg/dL 65-99 81 Urea Nitrogen 18 mg/dL 7-25 Creatinine 1.09 mg/dL 0.76-1.46 BUN/Creatinine Ratio 16.5 6-22 Protein,Total 7.4 g/dL 6.2-8.3 Albumin 4.6 g/dL 3.6-5.1 Globulin,Calculated 2.8 g/dL 2.1-3.7 A/G Ratio 1.6 1.0-2.1 Egfr Non-Afr. Nigerian >60 ML/MIN/1.73M2 > Or=60 Egfr >60 ML/MIN/1.73M2 > Or=60 Laboratory test 06/21/2009 [facility] PSA,Total 0.3 NG/ML 0.0-4.0 [address] [place] [address] [phone] CBC W/ Diff & PLT 06/21/2009 [facility] WBC 6.5 thous/L 3.8-10.[address] [place] [address] [phone] RBC 5.04 mill/L 4.20-5.80 Hemoglobin 15.0 g/dL 13.2-17.1 Hematocrit 44.3 % 38.5-50.0 MCV 87.9 FL 80.0-100.0 MCH 29.9 pg 27.0-33.0 MCHC 34.0 g/dL 32.0-36.0 RDW 12.7 % 11.0-15.0 Platelet Count 246 thous/L 140-400 Platelet Sufficiency NORMAL Normal Neutrophils,Absolute 3670 cells/L 2234-7039 Bands,Absolute DNR cells/L 0-750 Metamyelocytes,Absolute DNR cells/L 0 Myelocytes,Absolute DNR cells/L 0 Promyelocytes,Absolute DNR cells/L 0 Lymphocytes,Absolute 2080 cells/L 850-3900 Monocytes,Absolute 610 cells/L 200-950 Eosinophils,Absolute 120 cells/L 15-500 Basophils,Absolute 30 cells/L 0-200 Blast Cells,Absolute DNR cells/L 0 Nucleated RBC,Absolute DNR cells/L 0 Total Neutrophils,% 57 % 38-80 Bands,% DNR % 0-10 Metamyelocytes,% DNR % Myelocytes,% DNR % Promyelocytes,% DNR % Total Lymphocytes,% 32 % 15-49 Monocytes,% 9 % 0-13 Eosinophils,% 2 % 0-8 Basophils,% 0 % 0-2 Blasts,% DNR % Nucleated RBC DNR /100WBC 0 RBC Morphology NORMAL Anisocytosis DNR Poikilocytosis DNR Microcytosis DNR Macrocytosis DNR Polychromasia DNR Hypochromasia DNR Target Cells DNR Basophilic Stippling DNR Comment DNR TSH & T4,Free 06/21/2009 [facility] TSH,3RD 2.54 mU/L 0.40-4.[address] [place], [place] [id number] [phone] T4,Free 0.8 ng/dL 0.8-1.8 Lipid Panel 06/21/2009 [facility] Cholesterol 177 mg/dL 125-[address] [place], [place] [address] [phone] HDL Cholesterol 42 mg/dL > Or=40 Triglycerides 207 mg/dL High <150 Cholesterol/HDL Ratio 4.2 < Or=5.0 LDL Chol,Calculated 94 mg/dL <130 83 Hepatic Function 06/21/2009 [facility] Alkaline Phosphatase 58 U/L 40- [address] [place] [address] [phone] Ast 22 U/L 10-35 Alt 32 U/L 9-60 Bilirubin,Total 0.6 mg/dL 0.2-1.2 Bilirubin,Direct 0.1 mg/dL < Or=0.2 Protein,Total 7.4 g/dL 6.2-8.3 Albumin 4.6 g/dL 3.6-5.1 Globulin,Calculated 2.8 g/dL 2.1-3.7 A/G Ratio 1.6 1.0-2.1 Laboratory test 06/05/2008 [facility] TSH,3RD 2.60 mU/L 0.40-4.[address] [place] [address] [phone] CBC W/ Diff & 06/05/2008 [facility] WBC 8.4 3.8-10.[address] thous/[place] [address] [phone] RBC 4.96 mill/L 4.20-5.80 Hemoglobin 14.8 g/dL 13.2-17.1 Hematocrit 42.8 % 38.5-50.0 MCV 86.3 FL 80.0-100.0 MCH 29.8 pg 27.0-33.0 MCHC 34.5 g/dL 32.0-36.0 RDW 13.2 % 11.0-15.0 Platelet Count 254 thous/L 140-400 Platelet Sufficiency NORMAL Normal Neutrophils,Absolute 4410 cells/L 0727-8402 Bands,Absolute DNR cells/L 0-750 Metamyelocytes,Absolute DNR cells/L 0 Myelocytes,Absolute DNR cells/L 0 Promyelocytes,Absolute DNR cells/L 0 Lymphocytes,Absolute 2840 cells/L 850-3900 Monocytes,Absolute 940 cells/L 200-950 Eosinophils,Absolute 150 cells/L 15-500 Basophils,Absolute 30 cells/L 0-200 Blast Cells,Absolute DNR cells/L 0 Nucleated RBC,Absolute DNR cells/L 0 Total Neutrophils,% 53 % 38-80 Bands,% DNR % 0-10 Metamyelocytes,% DNR % Myelocytes,% DNR % Promyelocytes,% DNR % Total Lymphocytes,% 34 % 15-49 Monocytes,% 11 % 0-13 Eosinophils,% 2 % 0-8 Basophils,% 0 % 0-2 Blasts,% DNR % Nucleated RBC DNR /100WBC 0 RBC Morphology NORMAL Anisocytosis DNR Poikilocytosis DNR Microcytosis DNR Macrocytosis DNR Polychromasia DNR Hypochromasia DNR Target Cells DNR Basophilic Stippling DNR Comment DNR Laboratory test 06/05/2008 [facility] PSA,Total 0.2 NG/ML 0.0-4.[address] [place] [address] [phone] Laboratory test 05/25/2008 [facility] Hemoglobin A1c/W 5.8 % <6.[address] [place] [address] [employer] [phone] Basic Metabolic 05/25/2008 [facility] Sodium 141 mmol/L 135-[address] [place] [address] [phone] Potassium 5.2 mmol/L 3.5-5.3 Chloride 105 mmol/L 98-110 Carbon Dioxide 28 mmol/L 21-33 Calcium 9.2 mg/dL 8.6-10.2 Glucose 98 mg/dL 65-99 84 Urea Nitrogen 20 mg/dL 7-25 Creatinine 0.98 mg/dL 0.50-1.30 BUN/Creatinine Ratio 20.2 6-22 Egfr Non-Afr. Nigerian >60 ML/MIN/1.73M2 > Or=60 Egfr >60 ML/MIN/1.73M2 > Or=60 Lipid Panel 05/25/2008 [facility] Cholesterol 181 mg/dL 125-[address] [place] [address] [phone] HDL Cholesterol 45 mg/dL > Or=40 Cholesterol/HDL Ratio 4.0 < Or=5.0 LDL Chol,Calculated 108 mg/dL <130 85 Triglycerides 140 mg/dL <150 Culture,Urine,Voided 05/31/2007 [facility] URINE-[facility]THRA [address] [place] [address] [phone] Preliminary Report DNR Interim Report DNR Organism #1 DNR Organism #2 DNR Organism #3 DNR Organism #4 DNR 4399 DNR Comp Metabolic Panel 05/24/2007 [facility] Sodium 142 mmol/L 135-146 [address] [facility] [place] [address] [phone] Potassium 4.5 mmol/L 3.5-5.3 Chloride 104 mmol/L 98-110 Carbon Dioxide 26 mmol/L 21-33 Calcium 9.0 mg/dL 8.6-10.2 Alkaline Phosphatase 55 U/L 40-115 Ast 20 U/L 10-35 Alt 29 U/L 9-60 Bilirubin,Total 0.6 mg/dL 0.2-1.2 Glucose 87 mg/dL 65-99 86 Urea Nitrogen 18 mg/dL 7-25 Creatinine 1.0 mg/dL 0.5-1.3 BUN/Creatinine Ratio 17.3 6-22 Protein,Total 7.0 g/dL 6.2-8.3 Albumin 4.1 g/dL 3.6-5.1 Globulin,Calculated 2.9 g/dL 2.1-3.7 A/G Ratio 1.4 1.0-2.1 GFR Estimated >60 ML/MIN/1.7 >59 87 CBC W/ Diff & PLT 05/24/2007 [facility] WBC 6.8 thous/L 3.8-10.8 [address] [facility] [place] [address] [phone] RBC 5.00 mill/L 4.20-5.80 Hemoglobin 15.2 g/dL 13.2-17.1 Hematocrit 43.7 % 38.5-50.0 MCV 87.2 FL 80.0-100.0 MCH 30.4 pg 27.0-33.0 MCHC 34.8 g/dL 32.0-36.0 RDW 13.4 % 11.0-15.0 Platelet Count 270 thous/L 140-400 Platelet Sufficiency NORMAL Normal Neutrophils,Absolute 3650 cells/L [phone] Bands,Absolute DNR cells/L 0-750 Metamyelocytes,Absolute DNR cells/L 0 Myelocytes,Absolute DNR cells/L 0 Promyelocytes,Absolute DNR cells/L 0 Lymphocytes,Absolute 2300 cells/L 850-3900 Monocytes,Absolute 630 cells/L 200-950 Eosinophils,Absolute 130 cells/L 15-500 Basophils,Absolute 50 cells/L 0-200 Blast Cells,Absolute DNR cells/L 0 Nucleated RBC,Absolute DNR cells/L 0 Total Neutrophils,% 54 % 38-80 Bands,% DNR % 0-10 Metamyelocytes,% DNR % Myelocytes,% DNR % Promyelocytes,% DNR % Total Lymphocytes,% 34 % 15-49 Monocytes,% 9 % 0-13 Eosinophils,% 2 % 0-8 Basophils,% 1 % 0-2 Blasts,% DNR % Nucleated RBC DNR /100WBC 0 RBC Morphology NORMAL Anisocytosis DNR Poikilocytosis DNR Microcytosis DNR Macrocytosis DNR Polychromasia DNR Hypochromasia DNR Target Cells DNR Basophilic Stippling DNR Comment DNR TSH & T4,Free 05/24/2007 [facility] TSH,3RD 2.27 mU/L 0.40-4.[address] [place] [address] [phone] T4,Free 0.9 ng/dL 0.8-1.8 Lipid Panel 05/24/2007 [facility] Cholesterol 178 mg/dL 125-[address] [place] [address] [phone] HDL Cholesterol 39 mg/dL Low > Or=40 88 Triglycerides 175 mg/dL High <150 Cholesterol/HDL Ratio 4.6 < Or=5.0 LDL Chol,Calculated 104 mg/dL <130 89 Laboratory test 05/24/2007 [facility] PSA,Total 0.2 NG/ML 0.0-4.0 [address] [place] [address] [phone] Lipid Panel 09/15/2006 [facility] Cholesterol 160 mg/dL <[address] [place] [address] [phone] HDL Cholesterol 39 mg/dL Low >40 91 Cholesterol/HDL Ratio 4.1 <5.0 LDL Chol,Calculated 94 mg/dL <130 92 Triglycerides 134 mg/dL <150 Laboratory test finding 05/20/2006 [facility] TSH 2.64 mU/L 0.40-5.[address] [place] [address] [phone] T4,Free 1.0 ng/dL 0.8-1.8 Testosterone,Total 254 ng/dL [phone] Comp Metabolic Panel 05/13/2006 [facility] Sodium 140 mmol/L 135-146 [address] [place] [address] [phone] Potassium 3.9 mmol/L 3.5-5.3 Chloride 107 mmol/L 98-110 Carbon Dioxide 23 mmol/L 21-33 Calcium 8.7 mg/dL 8.5-10.4 Alkaline Phosphatase 57 U/L 20-125 Ast 31 U/L 3-50 Alt 50 U/L 3-60 Bilirubin,Total 0.5 mg/dL 0.2-1.5 Glucose 88 mg/dL 65-99 93 Urea Nitrogen 18 mg/dL 7-25 Creatinine 1.1 mg/dL 0.5-1.4 BUN/Creatinine Ratio 15.6 6-25 Protein,Total 6.9 g/dL 6.0-8.3 Albumin 4.0 g/dL 3.5-4.9 Globulin,Calculated 2.9 g/dL 2.2-4.2 A/G Ratio 1.4 0.8-2.0 GFR Estimated >60 ML/MIN/1.7 >59 94 CBC W/ Diff & PLT 05/13/2006 [facility] WBC 8.4 thous/L 3.8-10.8 [address] [place] [address] [phone] RBC 4.85 mill/L 4.20-5.80 Hemoglobin 14.2 g/dL 13.2-17.1 Hematocrit 41.9 % 38.5-50.0 MCV 86.3 FL 80.0-100.0 MCH 29.2 pg 27.0-33.0 MCHC 33.8 g/dL 32.0-36.0 RDW 13.1 % 11.0-15.0 Platelet Count 263 thous/L 140-400 Platelet Sufficiency NORMAL Normal Neutrophils,Absolute 6100 cells/L 8626-0025 Bands,Absolute DNR cells/L 0-750 Metamyelocytes,Absolute DNR cells/L 0 Myelocytes,Absolute DNR cells/L 0 Promyelocytes,Absolute DNR cells/L 0 Lymphocytes,Absolute 1200 cells/L 850-3900 Monocytes,Absolute 830 cells/L 200-950 Eosinophils,Absolute 170 cells/L 15-500 Basophils,Absolute 70 cells/L 0-200 Blast Cells,Absolute DNR cells/L 0 Nucleated RBC,Absolute DNR cells/L 0 Total Neutrophils,% 73 % 38-80 Bands,% DNR % 0-10 Metamyelocytes,% DNR % Myelocytes,% DNR % Promyelocytes,% DNR % Total Lymphocytes,% 14 % 15-49 Monocytes,% 10 % 0-13 Eosinophils,% 2 % 0-8 Basophils,% 1 % 0-2 Blasts,% DNR % Nucleated RBC DNR /100WBC 0 RBC Morphology NORMAL Anisocytosis DNR Poikilocytosis DNR Microcytosis DNR Macrocytosis DNR Polychromasia DNR Hypochromasia DNR Target Cells DNR Basophilic Stippling DNR Comment DNR Lipid Panel 05/13/2006 [facility] Cholesterol 149 mg/dL <200 [address] [place] [address] [phone] HDL Cholesterol 37 mg/dL Low >40 95 Cholesterol/HDL Ratio 4.0 <5.0 LDL Chol,Calculated 94 mg/dL <130 96 Triglycerides 90 mg/dL <150 Laboratory test 05/13/2006 [facility] PSA,Total 0.2 NG/ML 0.0-4.0 97 finding 6 [place] [address] [phone] 1 FASTING 2 Relative blood cell counts (%) should be compared with absolute cell counts (cells/mcL). Relative counts may not be clinically meaningful if the absolute count of one or more cell type is decreased. Reference ranges for relative cell counts derived from: A Manual of Laboratory and Diagnostics Tests, 9th Ed, [employer], 2015. Pediatric Reference Intervals, 7th Ed, [facility] [employer], 2011. 3 Reference range for high altitude clients: 18-30 mmol/L 4 GLUCOSE REFERENCE RANGE BASED ON FASTING SPECIMEN. 5 The upper reference limit for Creatinine is approximately 13% higher for people identified as -Nigerian. 6 For someone without known diabetes, a hemoglobin A1C value between 5.7% and 6.4% is consistent with prediabetes and should be confirmed with a follow-up test. For someone with known diabetes, a value <7% indicates that their diabetes is well controlled. A1C targets should be individualized based on duration of diabetes, age, co-morbid conditions and other considerations. This assay result is consistent with an increased risk of diabetes. Currently, no consensus exists regarding use of hemoglobin A1C for diagnosis of diabetes in children. FOR DIAGNOSTIC PURPOSES: A1C VALUE(% OF TOTAL HEMOGLOBIN) INTERPRETATION < 5.7 CONSISTENT WITH THE ABSENCE OF DIABETES 5.7 - 6.4 CONSISTENT WITH INCREASED RISK OF DIABETES > OR=6.5 CONSISTENT WITH DIABETES FOR MONITORING PURPOSES (ADA GUIDELINNES): A1C VALUE(% OF TOTAL HEMOGLOBIN) INTERPRETATION < 6.5 ACHIEVES STRINGENT GLYCEMIC GOAL < 7.0 ACHIEVES GENERAL GLYCEMIC GOAL(NON- ADULTS) < 8.0 ACHIEVES LESS STRINGENT GLYCEMIC GOAL 7 The total PSA value from this assay system is standardized against the WHO standard. The test result will be approximately 20% lower when compared to the equimolar-standardized total PSA (Jamison Left Hand). Comparison of serial PSA results should be interpreted with this fact in mind. This test was performed using the Siemens chemiluminescent method. Values obtained from different assay methods be used interchangeably. PSA levels, regardless of value, should not be interpreted as absolute evidence of the presence or absence of disease. 8 GLUCOSE REFERENCE RANGE BASED ON FASTING SPECIMEN. 9 The upper reference limit for Creatinine is approximately 13% higher for people identified as -Nigerian. 10 Relative blood cell counts (%) should be compared with absolute cell counts (cells/mcL). Relative counts may not be clinically meaningful if the absolute count of one or more cell type is decreased. Reference ranges for relative cell counts derived from: A Manual of Laboratory and Diagnostics Tests, 9th Ed, [employer], 2015. Pediatric Reference Intervals, 7th Ed, [facility] [employer], 2011. 11 LDL-C is now calculated using the Michael-Suma calculation, which is a validated novel method providing better accuracy than the Friedewald equation in the estimation of LDL-C. Michael BROWER et al.ERIK.2013;310(19):6681-6154 (http://education.[email or web address].[email or web address]/faq/[email or web address]) Desirable range <100 mg/dL for patients with CHD or Diabetes and <70 mg/dL for Diabetic patients with known heart disease 12 For patients with diabetes plus 1 major ASCVD risk factor, treating to a non-HDL-C goal of <100 mg/dL (LDL-C of <70 mg/ dL) is considered a therapeutic option. 13 For someone without known diabetes, a hemoglobin A1C value between 5.7% and 6.4% is consistent with prediabetes and should be confirmed with a follow-up test. For someone with known diabetes, a value <7% indicates that their diabetes is well controlled. A1C targets should be individualized based on duration of diabetes, age, co-morbid conditions and other considerations. This assay result is consistent with an increased risk of diabetes. Currently, no consensus exists regarding use of hemoglobin A1C for diagnosis of diabetes in children. FOR DIAGNOSTIC PURPOSES: A1C VALUE(% OF TOTAL HEMOGLOBIN) INTERPRETATION < 5.7 CONSISTENT WITH THE ABSENCE OF DIABETES 5.7 - 6.4 CONSISTENT WITH INCREASED RISK OF DIABETES > OR=6.5 CONSISTENT WITH DIABETES FOR MONITORING PURPOSES (ADA GUIDELINNES): A1C VALUE(% OF TOTAL HEMOGLOBIN) INTERPRETATION < 6.5 ACHIEVES STRINGENT GLYCEMIC GOAL < 7.0 ACHIEVES GENERAL GLYCEMIC GOAL(NON- ADULTS) < 8.0 ACHIEVES LESS STRINGENT GLYCEMIC GOAL 14 GLUCOSE REFERENCE RANGE BASED ON FASTING SPECIMEN. 15 The upper reference limit for Creatinine is approximately 13% higher for people identified as -Nigerian. 16 The Michael-Moise calculation is a validated novel method that provides better accuracy than the Friedewald equation in the estimation of LDL-C, particularly when TG levels are 150-400 mg/dL and LDL-C levels are lower than 70 mg/dL. Reference: Michael BROWER et al. Comparison of a Novel Method vs the Friedewald Equation for Estimating Low-Density Lipoprotein Cholesterol Levels From the Standard Lipid Profile. ERIK. 2013;310(19): 5381-1769. Desirable range <100 mg/dL for patients with CHD or Diabetes and <70 mg/dL for Diabetic patients with known heart disease 17 For patients with diabetes plus 1 major ASCVD risk factor, treating to a non-HDL-C goal of <100 mg/dL (LDL-C of <70 mg/ dL) is considered a therapeutic option. 18 For someone without known diabetes, a hemoglobin A1C value between 5.7% and 6.4% is consistent with prediabetes and should be confirmed with a follow-up test. For someone with known diabetes, a value <7% indicates that their diabetes is well controlled. A1C targets should be individualized based on duration of diabetes, age, co-morbid conditions and other considerations. This assay result is consistent with an increased risk of diabetes. Currently, no consensus exists regarding use of hemoglobin A1C for diagnosis of diabetes in children. FOR DIAGNOSTIC PURPOSES: A1C VALUE(% OF TOTAL HEMOGLOBIN) INTERPRETATION < 5.7 CONSISTENT WITH THE ABSENCE OF DIABETES 5.7 - 6.4 CONSISTENT WITH INCREASED RISK OF DIABETES > OR=6.5 CONSISTENT WITH DIABETES FOR MONITORING PURPOSES (ADA GUIDELINNES): A1C VALUE(% OF TOTAL HEMOGLOBIN) INTERPRETATION < 6.5 ACHIEVES STRINGENT GLYCEMIC GOAL < 7.0 ACHIEVES GENERAL GLYCEMIC GOAL(NON- ADULTS) < 8.0 ACHIEVES LESS STRINGENT GLYCEMIC GOAL 19 GLUCOSE REFERENCE RANGE BASED ON FASTING SPECIMEN. 20 The upper reference limit for Creatinine is approximately 13% higher for people identified as -Nigerian. 21 THIS TEST WAS PERFORMED USING THE SIEMENS CHEMILUMINESCENT METHOD. VALUES OBTAINED FROM DIFFERENT ASSAY METHODS CANNOT BE USED INTERCHANGEABLY. PSA LEVELS, REGARDLESS OF VALUE, SHOULD NOT BE INTERPRETED ABSOLUTE EVIDENCE OF THE PRESENCE OR ABSENCE OF DISEASE. 22 Relative blood cell counts (%) should be compared with absolute cell counts (cells/mcL). Relative counts may not be clinically meaningful if the absolute count of one or more cell type is decreased. Reference ranges for relative cell counts derived from: A Manual of Laboratory and Diagnostics Tests, 9th Ed, [employer], 2015. Pediatric Reference Intervals, 7th Ed, [facility] [employer], 2011. 23 According to ADA guidelines, hemoglobin A1c <7.0% represents optimal control in non- diabetic patients. Different metrics may apply to specific patient populations. Standards of Medical Care in Diabetes-2013. Diabetes Care. 2013;36:s11-s66 For the purpose of screening for the presence of diabetes: A1C VALUE INTERPRETATION <5.7% Consistent with the absence of diabetes 5.7 - 6.4% Consistent with increased risk for diabetes (prediabetes) > or=6.5% Consistent with diabetes Currently, no consensus exists regarding use of hemoglobin A1C for diagnosis of diabetes in children. 24 GLUCOSE REFERENCE RANGE BASED ON FASTING SPECIMEN. 25 The upper reference limit for Creatinine is approximately 13% higher for people identified as -Nigerian. 26 GLUCOSE REFERENCE RANGE BASED ON FASTING SPECIMEN. 27 The upper reference limit for Creatinine is approximately 13% higher for people identified as -Nigerian. 28 LDL-CHOLESTEROL RISK CATEGORY* GOAL VERY HIGH (E.G. DIABETES + CVD) <70 MG/DL HIGH (DIABETICS; CHD RISK EQUIVALENTS) <100 MG/DL MODERATELY HIGH (MULTIPLE(2+) RISK FACTORS) <130 MG/DL 0 TO 1 RISK FACTORS <160 MG/DL * NCEP REPORT. CIRCULATION 2004; 110: [phone] 29 Target for non-HDL cholesterol is 30 mg/dL higher than LDL cholesterol target. 30 According to ADA guidelines, hemoglobin A1c <7.0% represents optimal control in non- diabetic patients. Different metrics may apply to specific patient populations. Standards of Medical Care in Diabetes-2013. Diabetes Care. 2013;36:[id number] For the purpose of screening for the presence of diabetes: A1C VALUE INTERPRETATION <5.7% Consistent with the absence of diabetes 5.7 - 6.4% Consistent with increased risk for diabetes (prediabetes) > or=6.5% Consistent with diabetes Currently, no consensus exists regarding use of hemoglobin A1C for diagnosis of diabetes in children. 31 According to ADA guidelines, hemoglobin A1c <7.0% represents optimal control in non- diabetic patients. Different metrics may apply to specific patient populations. Standards of Medical Care in Diabetes-2013. Diabetes Care. 2013;36:s11-s66 For the purpose of screening for the presence of diabetes: A1C VALUE INTERPRETATION <5.7% Consistent with the absence of diabetes 5.7 - 6.4% Consistent with increased risk for diabetes (prediabetes) > or=6.5% Consistent with diabetes Currently, no consensus exists regarding use of hemoglobin A1C for diagnosis of diabetes in children. 32 THIS TEST WAS PERFORMED USING THE SIEMENS CHEMILUMINESCENT METHOD. VALUES OBTAINED FROM DIFFERENT ASSAY METHODS CANNOT BE USED INTERCHANGEABLY. PSA LEVELS, REGARDLESS OF VALUE, SHOULD NOT BE INTERPRETED ABSOLUTE EVIDENCE OF THE PRESENCE OR ABSENCE OF DISEASE. 33 LDL-CHOLESTEROL RISK CATEGORY* GOAL VERY HIGH (E.G. DIABETES + CVD) <70 MG/DL HIGH (DIABETICS; CHD RISK EQUIVALENTS) <100 MG/DL MODERATELY HIGH (MULTIPLE(2+) RISK FACTORS) <130 MG/DL 0 TO 1 RISK FACTORS <160 MG/DL * NCEP REPORT. CIRCULATION 2004; 110: [phone] 34 Target for non-HDL cholesterol is 30 mg/dL higher than LDL cholesterol target. 35 Relative blood cell counts (%) should be compared with absolute cell counts (cells/mcL). Relative counts may not be clinically meaningful if the absolute count of one or more cell type is decreased. Reference ranges for relative cell counts derived from: A Manual of Laboratory and Diagnostics Tests, 9th Ed, [employer], 2015. Pediatric Reference Intervals, 7th Ed, [facility] Press, 2011. 36 GLUCOSE REFERENCE RANGE BASED ON FASTING SPECIMEN. 37 The upper reference limit for Creatinine is approximately 13% higher for people identified as -Nigerian. 38 GLUCOSE REFERENCE RANGE BASED ON FASTING SPECIMEN. 39 The upper reference limit for Creatinine is approximately 13% higher for people identified as -Nigerian. 40 According to ADA guidelines, hemoglobin A1c <7.0% represents optimal control in non- diabetic patients. Different metrics may apply to specific patient populations. Standards of Medical Care in Diabetes-2013. Diabetes Care. 2013;36:s11-s66 For the purpose of screening for the presence of diabetes: A1C VALUE INTERPRETATION <5.7% Consistent with the absence of diabetes 5.7 - 6.4% Consistent with increased risk for diabetes (prediabetes) > or=6.5% Consistent with diabetes Currently, no consensus exists regarding use of hemoglobin A1C for diagnosis of diabetes in children. 41 GLUCOSE REFERENCE RANGE BASED ON FASTING SPECIMEN. 42 The upper reference limit for Creatinine is approximately 13% higher for people identified as -Nigerian. 43 According to ADA guidelines, hemoglobin A1c <7.0% represents optimal control in non- diabetic patients. Different metrics may apply to specific patient populations. Standards of Medical Care in Diabetes-2013. Diabetes Care. 2013;36:s11-s66 For the purpose of screening for the presence of diabetes: A1C VALUE INTERPRETATION <5.7% Consistent with the absence of diabetes 5.7 - 6.4% Consistent with increased risk for diabetes (prediabetes) > or=6.5% Consistent with diabetes Currently, no consensus exists regarding use of hemoglobin A1C for diagnosis of diabetes in children. 44 GLUCOSE REFERENCE RANGE BASED ON FASTING SPECIMEN. 45 The upper reference limit for Creatinine is approximately 13% higher for people identified as -Nigerian. 46 THIS TEST WAS PERFORMED USING THE SIEMENS CHEMILUMINESCENT METHOD. VALUES OBTAINED FROM DIFFERENT ASSAY METHODS CANNOT BE USED INTERCHANGEABLY. PSA LEVELS, REGARDLESS OF VALUE, SHOULD NOT BE INTERPRETED ABSOLUTE EVIDENCE OF THE PRESENCE OR ABSENCE OF DISEASE. 47 According to ADA guidelines, hemoglobin A1c <7.0% represents optimal control in non- diabetic patients. Different metrics may apply to specific patient populations. Standards of Medical Care in Diabetes-2013. Diabetes Care. 2013;36:[id number] For the purpose of screening for the presence of diabetes: A1C VALUE INTERPRETATION <5.7% Consistent with the absence of diabetes 5.7 - 6.4% Consistent with increased risk for diabetes (prediabetes) > or=6.5% Consistent with diabetes Currently, no consensus exists regarding use of hemoglobin A1C for diagnosis of diabetes in children. 48 LDL-CHOLESTEROL RISK CATEGORY* GOAL VERY HIGH (E.G. DIABETES + CVD) <70 MG/DL HIGH (DIABETICS; CHD RISK EQUIVALENTS) <100 MG/DL MODERATELY HIGH (MULTIPLE(2+) RISK FACTORS) <130 MG/DL 0 TO 1 RISK FACTORS <160 MG/DL * NCEP REPORT. CIRCULATION 2004; 110: [phone] 49 Target for non-HDL cholesterol is 30 mg/dL higher than LDL cholesterol target. 50 GLUCOSE REFERENCE RANGE BASED ON FASTING SPECIMEN. 51 The upper reference limit for Creatinine is approximately 13% higher for people identified as -Nigerian. 52 GLUCOSE REFERENCE RANGE BASED ON FASTING SPECIMEN. 53 The upper reference limit for Creatinine is approximately 13% higher for people identified as -Nigerian. 54 According to ADA guidelines, hemoglobin A1c <7.0% represents optimal control in non- diabetic patients. Different metrics may apply to specific patient populations. Standards of Medical Care in Diabetes-2013. Diabetes Care. 2013;36:s11-s66 For the purpose of screening for the presence of diabetes: A1C VALUE INTERPRETATION <5.7% Consistent with the absence of diabetes 5.7 - 6.4% Consistent with increased risk for diabetes (prediabetes) > or=6.5% Consistent with diabetes Currently, no consensus exists regarding use of hemoglobin A1C for diagnosis of diabetes in children. 55 OPERATION/PROCEDURE Colonoscopy DIAGNOSIS: "RECTUM AND TRANSVERSE COLON, POLYPECTOMIES": HYPERPLASTIC POLYPS AND ADENOMATOUS POLYP. Femi GROSS "RECTAL AND TRANSVERSE POLYPS". The specimen is received in an appropriately labeled container. This contains four rounded mir colored pieces of soft tissue measuring up to 0.3 cm.; filtered and submitted in toto within a single cassette. NIMCO/trevor MICROSCOPIC Sections show polypoid fragmented colonic mucosa with hyperplastic, serrated glands and hyperchromatic, oval nuclei within cells lining tubular glands. PRE OPERATIVE DIAGNOSIS Screening colon REVIEW CODE CODE: I Signed Electronically signed ARTUR SINGH MD 12/21/13 [id number] 56 THIS TEST WAS PERFORMED USING THE SIEMENS CHEMILUMINESCENT METHOD. VALUES OBTAINED FROM DIFFERENT ASSAY METHODS CANNOT BE USED INTERCHANGEABLY. PSA LEVELS, REGARDLESS OF VALUE, SHOULD NOT BE INTERPRETED ABSOLUTE EVIDENCE OF THE PRESENCE OR ABSENCE OF DISEASE. 57 25-OHD3 indicates both endogenous production and supplementation. 25-OHD2 is an indicator of exogenous sources such as diet or supplementation. Therapy is based on measurement of Total 25-OHD, with levels <20 ng/mL indicative of Vitamin D deficiency while levels between 20 ng/mL and 30 ng/mL suggest insufficiency. Optimal levels are > or=30ng/mL. For more information on this test, go to [email or web address] 58 GLUCOSE REFERENCE RANGE BASED ON FASTING SPECIMEN. 59 The upper reference limit for Creatinine is approximately 13% higher for people identified as -Nigerian. 60 According to ADA guidelines, hemoglobin A1c <7.0% represents optimal control in non- diabetic patients. Different metrics may apply to specific patient populations. Standards of Medical Care in Diabetes-2013. Diabetes Care. 2013;36:s11-s66 For the purpose of screening for the presence of diabetes: A1C VALUE INTERPRETATION <5.7% Consistent with the absence of diabetes 5.7 - 6.4% Consistent with increased risk for diabetes (prediabetes) > or=6.5% Consistent with diabetes Currently, no consensus exists regarding use of hemoglobin A1C for diagnosis of diabetes in children. 61 LDL-CHOLESTEROL RISK CATEGORY* GOAL VERY HIGH (E.G. DIABETES + CVD) <70 MG/DL HIGH (DIABETICS; CHD RISK EQUIVALENTS) <100 MG/DL MODERATELY HIGH (MULTIPLE(2+) RISK FACTORS) <130 MG/DL 0 TO 1 RISK FACTORS <160 MG/DL * NCEP REPORT. CIRCULATION 2004; 110: [phone] 62 Target for non-HDL cholesterol is 30 mg/dL higher than LDL cholesterol target. 63 THIS TEST WAS PERFORMED USING THE SIEMENS CHEMILUMINESCENT METHOD. VALUES OBTAINED FROM DIFFERENT ASSAY METHODS CANNOT BE USED INTERCHANGEABLY. PSA LEVELS, REGARDLESS OF VALUE, SHOULD NOT BE INTERPRETED ABSOLUTE EVIDENCE OF THE PRESENCE OR ABSENCE OF DISEASE. 64 25-OHD3 indicates both endogenous production and supplementation. 25-OHD2 is an indicator of exogenous sources such as diet or supplementation. Therapy is based on measurement of Total 25-OHD, with levels <20 ng/mL indicative of Vitamin D deficiency while levels between 20 ng/mL and 30 ng/mL suggest insufficiency. Optimal levels are > or=30ng/mL. For more information on this test, go to [email or web address] 65 GLUCOSE REFERENCE RANGE BASED ON FASTING SPECIMEN. 66 The upper reference limit for Creatinine is approximately 13% higher for people identified as -Nigerian. 67 A1C VALUE(% OF TOTAL HEMOGLOBIN) INTERPRETATION < 5.7 DECREASED RISK OF DIABETES 5.7 - 6.0 INCREASED RISK OF DIABETES 6.1 - 6.4 HIGHER RISK OF DIABETES > OR=6.5 CONSISTENT WITH DIABETES 68 LDL-CHOLESTEROL RISK CATEGORY* GOAL VERY HIGH (E.G. DIABETES + CVD) <70 MG/DL HIGH (DIABETICS; CHD RISK EQUIVALENTS) <100 MG/DL MODERATELY HIGH (MULTIPLE(2+) RISK FACTORS) <130 MG/DL 0 TO 1 RISK FACTORS <160 MG/DL * NCEP REPORT. CIRCULATION 2004; 110: [phone] 69 Target for non-HDL cholesterol is 30 mg/dL higher than LDL cholesterol target. 70 GLUCOSE REFERENCE RANGE BASED ON FASTING SPECIMEN. 71 THIS TEST WAS PERFORMED USING THE SIEMENS CHEMILUMINESCENT METHOD. VALUES OBTAINED FROM DIFFERENT ASSAY METHODS CANNOT BE USED INTERCHANGEABLY. PSA LEVELS, REGARDLESS OF VALUE, SHOULD NOT BE INTERPRETED ABSOLUTE EVIDENCE OF THE PRESENCE OR ABSENCE OF DISEASE. 72 LDL-CHOLESTEROL RISK CATEGORY* GOAL VERY HIGH (E.G. DIABETES + CVD) <70 MG/DL HIGH (DIABETICS; CHD RISK EQUIVALENTS) <100 MG/DL MODERATELY HIGH (MULTIPLE(2+) RISK FACTORS) <130 MG/DL 0 TO 1 RISK FACTORS <160 MG/DL * NCEP REPORT. CIRCULATION 2004; 110: [phone] 73 GLUCOSE REFERENCE RANGE BASED ON FASTING SPECIMEN. 74 LDL-CHOLESTEROL RISK CATEGORY* GOAL VERY HIGH (E.G. DIABETES + CVD) <70 MG/DL HIGH (DIABETICS; CHD RISK EQUIVALENTS) <100 MG/DL MODERATELY HIGH (MULTIPLE(2+) RISK FACTORS) <130 MG/DL 0 TO 1 RISK FACTORS <160 MG/DL * NCEP REPORT. CIRCULATION 2004; 110: [phone] 75 25-OHD3 indicates both endogenous production and supplementation. 25-OHD2 is an indicator of exogenous sources such as diet or supplementation. Therapy is based on measurement of Total 25-OHD, with levels <20 ng/mL indicative of Vitamin D deficiency while levels between 20 ng/mL and 30 ng/mL suggest insufficiency. Optimal levels are > or=30ng/mL. 76 A1C VALUE(% OF TOTAL HEMOGLOBIN) INTERPRETATION < 5.7 DECREASED RISK OF DIABETES 5.7 - 6.0 INCREASED RISK OF DIABETES 6.1 - 6.4 HIGHER RISK OF DIABETES > OR=6.5 CONSISTENT WITH DIABETES 77 Note: Persistent reduction for 3 months or more in an eGFR <60 mL/min/1.73 m2 defines CKD. Patients with eGFR values >/=60 mL/min/1.73 m2 may also have CKD if evidence of persistent proteinuria is present. The original MDRD equation for estimated GFR is not valid for patients less than 18 years of age. Additional information may be found at [email or web address].org. 78 Current guidelines recommend a treatment goal of <7% for diabetic patients. This method will measure glycosylated hemoglobin variants, HbS, HbG, HbH, HbWayne, HbC, HbE, etc. Other hemoglobin- opathies may give incorrect results with this test. Note change in expected values for healthy individuals 79 THIS ASSAY IS NOT INTENDED A CANCER SCREENING TEST. *Total_PSA methodology Axsym-MEIA, standardized to WHO 1st IS for PSA 96/670 The concentration of PSA in a given specimen, determined with assays from different manufacturers, can vary due to differences in assay methods and reagent specificity. Values obtained from different assay methods cannot be used interchangeably. 80 GLUCOSE REFERENCE RANGE BASED ON FASTING SPECIMEN. 81 GLUCOSE REFERENCE RANGE BASED ON FASTING SPECIMEN. 82 PSA VALUES FROM DIFFERENT ASSAY METHODS CANNOT BE USED INTERCHANGEABLY. THIS ASSAY WAS PERFORMED USING THE [employer] CHEMILUMINESCENCE METHOD. SERUM PSA LEVELS SHOULD NOT BE INTERPRETED ABSOLUTE EVIDENCE OF THE PRESENCE OR ABSENCE OF DISEASE. 83 LDL-CHOLESTEROL RISK CATEGORY* GOAL VERY HIGH (E.G. DIABETES + CVD) <70 MG/DL HIGH (DIABETICS; CHD RISK EQUIVALENTS) <100 MG/DL MODERATELY HIGH (MULTIPLE(2+) RISK FACTORS) <130 MG/DL 0 TO 1 RISK FACTORS <160 MG/DL * NCEP REPORT. CIRCULATION 2004; 110: [phone] 84 GLUCOSE REFERENCE RANGE BASED ON FASTING SPECIMEN. 85 LDL-CHOLESTEROL RISK CATEGORY* GOAL VERY HIGH (E.G. DIABETES + CVD) <70 MG/DL HIGH (DIABETICS; CHD RISK EQUIVALENTS) <100 MG/DL MODERATELY HIGH (MULTIPLE(2+) RISK FACTORS) <130 MG/DL 0 TO 1 RISK FACTORS <160 MG/DL * NCEP REPORT. CIRCULATION 2004; 110: [phone] 86 GLUCOSE REFERENCE RANGE BASED ON FASTING SPECIMEN. 87 THE GFR ESTIMATE IS NOT ADJUSTED FOR RACE, IF THE PATIENT RACE IS -BELIZE[place], THE GFR ESTIMATE MUST BE MULTIPLIED BY A FACTOR OF 1.21. 88 HDL REFERENCE RANGES ADULTS (20 YEARS & OLDER) DESIRABLE: > OR=60 MG/DL HIGHER RISK: <40 MG/DL 89 LDL-CHOLESTEROL RISK CATEGORY* GOAL VERY HIGH (E.G. DIABETES + CVD) <70 MG/DL HIGH (DIABETICS; CHD RISK EQUIVALENTS) <100 MG/DL MODERATELY HIGH (MULTIPLE(2+) RISK FACTORS) <130 MG/DL 0 TO 1 RISK FACTORS <160 MG/DL * NCEP REPORT. CIRCULATION 2004; 110: [phone] 90 PSA VALUES FROM DIFFERENT ASSAY METHODS CANNOT BE USED INTERCHANGEABLY. THIS ASSAY WAS PERFORMED USING THE [employer]ITH CHEMILUMINESCENCE METHOD. SERUM PSA LEVELS SHOULD NOT BE INTERPRETED ABSOLUTE EVIDENCE OF THE PRESENCE OR ABSENCE OF DISEASE. 91 HDL REFERENCE RANGES ADULTS (20 YEARS & OLDER) DESIRABLE: > OR=60 MG/DL HIGHER RISK: <40 MG/DL 92 LDL-CHOLESTEROL RISK CATEGORY* GOAL VERY HIGH (E.G. DIABETES + CVD) <70 MG/DL HIGH (DIABETICS; CHD RISK EQUIVALENTS) <100 MG/DL MODERATELY HIGH (MULTIPLE(2+) RISK FACTORS) <130 MG/DL 0 TO 1 RISK FACTORS <160 MG/DL * NCEP REPORT. CIRCULATION 2004; 110: 227-239 93 GLUCOSE REFERENCE RANGE BASED ON FASTING SPECIMEN. 94 THE GFR ESTIMATE IS NOT ADJUSTED FOR RACE, IF THE PATIENT RACE IS -BELIZEAN, THE GFR ESTIMATE MUST BE MULTIPLIED BY A FACTOR OF 1.21. 95 HDL REFERENCE RANGES ADULTS (20 YEARS & OLDER) DESIRABLE: > OR=60 MG/DL HIGHER RISK: <40 MG/DL 96 LDL-CHOLESTEROL RISK CATEGORY* GOAL VERY HIGH (E.G. DIABETES + CVD) <70 MG/DL HIGH (DIABETICS; CHD RISK EQUIVALENTS) <100 MG/DL MODERATELY HIGH (MULTIPLE(2+) RISK FACTORS) <130 MG/DL 0 TO 1 RISK FACTORS <160 MG/DL * NCEP REPORT. CIRCULATION 2004; 110: 227-239 97 PSA VALUES FROM DIFFERENT ASSAY METHODS CANNOT BE USED INTERCHANGEABLY. THIS ASSAY WAS PERFORMED USING THE [employer] CHEMILUMINESCENCE METHOD. Procedures Date Code Description Status 04/26/2018 58549 EKG-Tracing & Report Completed 04/22/2018 72860 Non-Invcorrotid/Comp /Bilat Study Completed 04/21/2018 52258 Echocardiography Completed 01/06/2017 20535 EKG-Tracing & Report Completed 01/05/2017 55321 Holter Monitor Office Completed 11/02/2016 95623 Non-Invcorrotid/Comp /Bilat Study Completed 08/22/2015 92434 Non-Invcorrotid/Comp /Bilat Study Completed 08/22/2015 16816 Echocardiography Completed 08/21/2015 83497 EKG-Tracing & Report Completed 12/19/2013 [id number] Colonoscopy Completed 07/24/2013 77054 Non-Invcorrotid/Comp /Bilat Study Completed 07/24/2013 71402 Echocardiography Completed 06/15/2012 97595 EKG-Tracing & Report Completed 06/13/2012 87594 Non-Invcorrotid/Comp /Bilat Study Completed 06/13/2012 10957 Echocardiography Completed 06/22/2011 12381 Non-Invcorrotid/Comp /Bilat Study Completed 06/22/2011 26458 Echocardiography Completed 07/01/2010 69104 EKG-Tracing & Report Completed 07/01/2010 04200 Non-Invcorrotid/Comp /Bilat Study Completed 07/01/2010 07403 Echocardiography Completed 06/21/2009 92895 EKG-Tracing & Report Completed 06/18/2009 48544 Non-Invcorrotid/Comp /Bilat Study Completed 06/18/2009 64205 Echocardiography Completed 05/25/2008 27588 EKG-Tracing & Report Completed 07/11/2007 52901 Holter Monitor Office Completed 06/14/2007 02250 Doppler Color Flow Velocity Completed 06/14/2007 46581 Doppler/ECHO Completed 06/14/2007 27297 ECHO-2D W/Wo M-Mode Completed 05/24/2007 92205 EKG-Tracing & Report Completed 05/24/2006 76228 Doppler Color Flow Velocity Completed 05/24/2006 43746 Doppler/ECHO Completed 05/24/2006 14310 ECHO-2D W/Wo M-Mode Completed 05/13/2006 91901 EKG-Tracing & Report Completed 12/12/2004 03958 EKG-Tracing & Report Completed 12/03/2003 06543 EKG-Tracing & Report Completed Encounters Type Date Location Provider Dx Diagnosis Office Visit 10/19/2017 Main Office Partha Wade MD I11.9 Hypertensive heart 12:30p disease without heart failure I42.9 Cardiomyopathy, unspecified E66.9 Obesity, unspecified E11.65 Type 2 diabetes mellitus with hyperglycemia G47.30 Sleep apnea, unspecified R73.01 Impaired fasting glucose Office Visit 05/06/2017 10:30a Main Office Partha Wade MD I11.9 Hypertensive heart disease without heart failure J44.9 Chronic obstructive pulmonary disease, unspecified E66.9 Obesity, unspecified E11.65 Type 2 diabetes mellitus with hyperglycemia G47.30 Sleep apnea, unspecified Office Visit 01/28/2017 8:00a Main Office Partha Wade MD I11.9 Hypertensive heart disease without heart failure J44.9 Chronic obstructive pulmonary disease, unspecified Z00.00 Encntr for general adult medical exam w/o abnormal findings E66.9 Obesity, unspecified E11.65 Type 2 diabetes mellitus with hyperglycemia M54.5 Low back pain Office Visit 10/08/2016 1:30p Main Office Partha Wade MD I11.9 Hypertensive heart disease without heart failure E66.9 Obesity, unspecified G47.30 Sleep apnea, unspecified E11.65 Type 2 diabetes mellitus with hyperglycemia I42.9 Cardiomyopathy, unspecified N40.1 Benign prostatic hyperplasia with lower urinary tract symp I34.0 Nonrheumatic mitral (valve) insufficiency I65.23 Occlusion and stenosis of bilateral carotid arteries Z23 Encounter for immunization Office Visit 08/21/2016 10:00a Main Office Partha Wade MD M75.102 Unsp rotatr-cuff tear/ruptr of left shoulder, not trauma Office Visit 03/26/2016 1:45p Main Office Partha Wade MD I11.9 Hypertensive heart disease without heart failure E66.9 Obesity, unspecified G47.30 Sleep apnea, unspecified R73.01 Impaired fasting glucose I42.9 Cardiomyopathy, unspecified Office Visit 09/12/2015 2:30p Main Office Partha Wade MD I11.9 Hypertensive heart disease without heart failure E66.9 Obesity, unspecified G47.30 Sleep apnea, unspecified N40.1 Enlarged prostate with lower urinary tract symptoms R73.01 Impaired fasting glucose Z00.00 Encntr for general adult medical exam w/o abnormal findings I42.9 Cardiomyopathy, unspecified Office Visit 04/25/2015 Main Office Partha Wade, V04.81 Need For Prophylactic 3:30p MD Vaccination & Inoculation/Influenza 278.00 Obesity Unspec 402.10 Hypertensive Heart Disease Benign W/O Heart Failure 250.00 Diabetes Mellitus W/O Compl Type II Or Unspec Controlled 780.57 Unspecified Sleep Apnea 425.40 Cardiomyopathy 600.01 hypertrophy benign of prostate with urinary obstruction GENERAL General Office Visit 01/17/2015 3:30p Main Office Partha aWde MD 278.00 Obesity Unspec 402.10 Hypertensive Heart Disease Benign W/O Heart Failure 250.00 Diabetes Mellitus W/O Compl Type II Or Unspec Controlled 780.57 Unspecified Sleep Apnea 425.40 Cardiomyopathy 729.5 Pain In Limb GENERAL General Office Visit 10/09/2014 3:15p Main Office Partha Wade MD 278.00 Obesity Unspec 402.10 Hypertensive Heart Disease Benign W/O Heart Failure 250.00 Diabetes Mellitus W/O Compl Type II Or Unspec Controlled GENERAL General Office Visit 08/29/2014 3:15p Main Office Partha Wade MD 278.00 Obesity Unspec 780.57 Unspecified Sleep Apnea 600.01 hypertrophy benign of prostate with urinary obstruction 402.10 Hypertensive Heart Disease Benign W/O Heart Failure 250.00 Diabetes Mellitus W/O Compl Type II Or Unspec Controlled V72.2 Examination Dental V72.0 Examination Eyes & Vision V70.0 Examination General Medical Routine AT Health Care Facility GENERAL General Office Visit 05/24/2014 4:30p Main Office Partha Wade MD 278.00 Obesity Unspec 780.57 Unspecified Sleep Apnea 600.01 hypertrophy benign of prostate with urinary obstruction 790.21 Impaired Fasting Glucose 268.00 Vitamin D Deficiency 402.10 Hypertensive Heart Disease Benign W/O Heart Failure GENERAL General Office Visit 10/09/2013 2:15p Main Office Partha Wade MD 382.9 Otitis Media Unspec 461.8 Sinusitis Acute Other GENERAL General Office Visit 08/11/2013 2:45p Main Office Partha Wade MD 402.10 Hypertensive Heart Disease Benign W/O Heart Failure 829.0 FX Unspec Bone Closed 780.57 Unspecified Sleep Apnea 278.00 Obesity Unspec GENERAL General Office Visit 07/06/2012 12:15p Main Office Partha Wade MD 911.4 Injury Superficial Insect Bite Trunk Nonvenomous W/O Infect E906.4 Bite Nonvenomous Arthropod 088.81 Lyme Disease GENERAL General Office Visit 06/21/2012 3:30p Main Office Partha Wade MD 709.90 Skin Lesion/Lesions 429.30 Cardiomegaly 424.0 Mitral Valve Disorder 402.10 Hypertensive Heart Disease Benign W/O Heart Failure 780.57 Unspecified Sleep Apnea 600.01 hypertrophy benign of prostate with urinary obstruction 278.00 Obesity Unspec 790.21 Impaired Fasting Glucose V72.2 Examination Dental V72.0 Examination Eyes & Vision V70.0 Examination General Medical Routine AT Health Care Facility 727.67 Ruptured Tendon Achilles GENERAL General Office Visit 06/30/2011 3:30p Main Office Partha Wade MD 424.0 Mitral Valve Disorder 402.10 Hypertensive Heart Disease Benign W/O Heart Failure 780.57 Unspecified Sleep Apnea 600.01 hypertrophy benign of prostate with urinary obstruction 278.00 Obesity Unspec 790.21 Impaired Fasting Glucose V72.2 Examination Dental V72.0 Examination Eyes & Vision V70.0 Examination General Medical Routine AT Health Care Facility 465.9 URI Upper Respiratory Infections Acute Unspec Sites GENERAL General Office Visit 12/29/2010 3:30p Main Office Partha Wade MD 780.57 Unspecified Sleep Apnea 402.10 Hypertensive Heart Disease Benign W/O Heart Failure 600.01 hypertrophy benign of prostate with urinary obstruction 278.00 Obesity Unspec 428.32 Diastolic Heart Failure Chronic 429.30 Cardiomegaly 433.10 Occlusion & 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 Infarction 496 Chronic Obstructive Pulmonary Disease 692.89 Dermatitis Due To Spec Agents Other 790.21 Impaired Fasting Glucose V62.3 Educational Circumstances Problem V72.0 Examination Eyes & Vision V72.2 Examination Dental GENERAL General Office Visit 07/01/2010 3:15p Main Office Partha Wade MD 780.57 Unspecified Sleep Apnea 402.10 Hypertensive Heart Disease Benign W/O Heart Failure 600.01 hypertrophy benign of prostate with urinary obstruction 278.00 Obesity Unspec 428.32 Diastolic Heart Failure Chronic 429.30 Cardiomegaly 433.10 Occlusion & 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 Infarction 496 Chronic Obstructive Pulmonary Disease 790.21 Impaired Fasting Glucose GENERAL General Office Visit 01/20/2010 3:00p Main Office Partha Wade MD 402.10 Hypertensive Heart Disease Benign W/O Heart Failure 780.57 Unspecified Sleep Apnea 600.01 hypertrophy benign of prostate with urinary obstruction 278.00 Obesity Unspec 428.32 Diastolic Heart Failure Chronic 692.89 Dermatitis Due To Spec Agents Other GENERAL General Office Visit 10/31/2009 12:00p Main Office Partha Wade MD 719.45 Pain Joint Pelvic Region & Thigh 429.30 Cardiomegaly 402.10 Hypertensive Heart Disease Benign W/O Heart Failure 786.50 Pain Chest Unspec GENERAL General Office Visit 06/27/2009 2:30p Main Office Partha Wade MD 402.10 Hypertensive Heart Disease Benign W/O Heart Failure 429.30 Cardiomegaly 780.57 Unspecified Sleep Apnea 600.01 hypertrophy benign of prostate with urinary obstruction 278.00 Obesity Unspec 715.90 Degenerative Joint Disease Genlzd Or Localzd Site Unspec 682.90 Cellulitis GENERAL General Office Visit 04/18/2009 3:30p Main Office Partha Wade MD 915.8 Injury Superficial Fingers Other & Unspec W/O Infection V03.7 Tetanus Toxoid Vaccination & Inoculation GENERAL General Office Visit 04/09/2009 4:00p Main Office Partha Wade MD 708.9 Urticaria Unspec 780.57 Unspecified Sleep Apnea 600.01 hypertrophy benign of prostate with urinary obstruction 278.00 Obesity Unspec 715.90 Degenerative Joint Disease Genlzd Or Localzd Site Unspec 785.10 Palpitations 402.10 Hypertensive Heart Disease Benign W/O Heart Failure GENERAL General Office Visit 04/02/2009 3:00p Main Office Partha Wade MD 708.9 Urticaria Unspec 780.57 Unspecified Sleep Apnea 600.01 hypertrophy benign of prostate with urinary obstruction 278.00 Obesity Unspec 715.90 Degenerative Joint Disease Genlzd Or Localzd Site Unspec GENERAL General Office Visit 06/05/2008 2:15p Main Office Partha Wade MD 780.57 Unspecified Sleep Apnea 600.01 hypertrophy benign of prostate with urinary obstruction 278.00 Obesity Unspec 715.90 Degenerative Joint Disease Genlzd Or Localzd Site Unspec V04.81 Need For Prophylactic Vaccination & Inoculation/Influenza V72.2 Examination Dental V70.0 Examination General Medical Routine AT Health Care Facility GENERAL General 496 Chronic Obstructive Pulmonary Disease Office Visit 05/31/2007 3:15p Main Office Partha Wade MD 429.30 Cardiomegaly V04.81 Need For Prophylactic Vaccination & Inoculation/Influenza 780.57 Unspecified Sleep Apnea 600.00 hypertrophy benign of prostate without urinary obstruction 402.10 Hypertensive Heart Disease Benign W/O Heart Failure 278.00 Obesity Unspec 715.90 Degenerative Joint Disease Genlzd Or Localzd Site Unspec 715.09 Osteoarthrosis Generalized Multiple Sites 600.10 nodular prostate without urinary obstruction GENERAL General 250.00 Diabetes Mellitus W/O Compl Type II Or Unspec Controlled 692.4 Dermatitis Contact Due To Other Chemical Products Office Visit 05/12/2007 12:30p Main Office Partha Wade MD 461.9 Sinusitis Acute Unspec Office Visit 09/22/2006 3:30p Main Office Partha Wade MD 780.57 Unspecified Sleep Apnea 278.00 Obesity Unspec 600.00 hypertrophy benign of prostate without urinary obstruction 402.10 Hypertensive Heart Disease Benign W/O Heart Failure 429.30 Cardiomegaly 715.90 Degenerative Joint Disease Genlzd Or Localzd Site Unspec 715.09 Osteoarthrosis Generalized Multiple Sites GENERAL General Office Visit 09/14/2006 1:00p Main Office Partha Wade MD 372.00 Conjunctivitis Acute Unspec 786.2 Cough 724.1 Pain Thoracic Spine GENERAL General Office Visit 06/03/2006 3:30p Main Office Partha Wade MD 780.57 Unspecified Sleep Apnea 278.00 Obesity Unspec GENERAL General Office Visit 05/20/2006 2:30p Main Office Partha Wade MD 600.00 hypertrophy benign of prostate without urinary obstruction 780.57 Unspecified Sleep Apnea 402.10 Hypertensive Heart Disease Benign W/O Heart Failure 257.9 Testicular Dysfunction Other Unspec 607.84 Impotence Organic Origin 278.00 Obesity Unspec 429.30 Cardiomegaly GENERAL General Office Visit 02/01/2006 2:20p Main Office Remington Tam MD 998.20 Laceration 682.40 Abscess Of Hand Office Visit 11/18/2005 3:30p Main Office Partha Wade MD 715.90 Degenerative Joint Disease Genlzd Or Localzd Site Unspec 600.00 hypertrophy benign of prostate without urinary obstruction 780.57 Unspecified Sleep Apnea GENERAL General Office Visit 05/21/2005 1:00p Main Office Partha Wade MD 402.10 Hypertensive Heart Disease Benign W/O Heart Failure 530.81 Esophageal Reflux Office Visit 12/16/2004 1:00p Main Office Partha Wade MD 402.10 Hypertensive Heart Disease Benign W/O Heart Failure 715.90 Degenerative Joint Disease Genlzd Or Localzd Site Unspec Office Visit 07/22/2004 10:00a Main Office Partha Wade MD 848.90 Muscle Sprain Office Visit 12/11/2003 3:30p Main Office Partha Wade MD 600.00 hypertrophy benign of prostate without urinary obstruction 715.90 Degenerative Joint Disease Genlzd Or Localzd Site Unspec Plan of Treatment Future Appointment(s):05/09/2018 9:30 am - Partha Wade MD at Main Office
--- OUTSIDE RECORDS SUMMARY | 2018-05-16 15:06 | XMS REPORT | Continuity of Care Document ---
:1950 Author Organization [facility] Office Address [address] [place] [address] Phone Care Team Providers Name Role Phone Partha Wade MD Unavailable Finn Kumar MD Unavailable Unavailable Unavailable Problems ALLERGIC RHINITIS (J30.9) (477.9) Dona Waite Prognosis: complains of frequent clearing of throat and congestion. was recommended OTC antihistamines and mucinex. as of 02-May-2018 COPD (CHRONIC OBSTRUCTIVE PULMONARY DISEASE) (J44.9) (186) LIZANDRO Bronson Prognosis: patient is here for routine follow up appt. patient is noted to be doing well, breathing-flores. physical exam and spirometry are noted to be at baseline. doing well on inhalers with no concerns. He is bob ving a knee replacement (left) on May 04, 2018. he will have the right knee replaced afterword. Overall, patient is in stable condition. we will continue him on current treatment regimen and we wi ll follow up routinely. This patient's plan of care was approved by Dr. Finn Phillip. as of 02-May-2018 HYPERTENSION (Renamed from BP (HIGH BLOOD PRESSURE)) (I10) (401.9) Dona Waite MORBID OBESITY (E66.01) (278.01) LIZANDRO Bronson PRE-DIABETES (R73.03) (790.29) Dona Waite SLEEP APNEA (G47.30) (780.57) Dona Waite Allergies and Adverse Reactions No Known Drug Allergies (Allergy) Onset: 14-Feb-2015 Medications CPAP SUPPLIES AND MASK (327.23) ( Device) (Free Text); Other - NOS Other - NOS at bedtime for 0 days Ordered: 14-Feb-2015 Start: 14-Feb-2015 Quantity: 1 MD Finn Kumar Refills: 0 CPAP SUPPLIES AND MASK (327.23) ( Device) (Free Text); Other - NOS at bedtime for 0 days Ordered: 13-Oct-2016 Start: 13-Oct-2016 Quantity: 1 Dut, NPC Leonard D Refills: 0 CPAP UNIT (327.23) ( Device) (Free Text); +20cm at bedtime Fiber 625 MG Oral Tablet; 2 daily (625 MG) FISH OIL, 1200MG (Oral Capsule); 1 daily (1200 MG) HYDROCHLOROTHIAZIDE, 25MG (Oral Tablet); 1 tab daily (25 MG) Losartan Potassium 25 MG Oral Tablet; (25 MG) Magnesium 250 MG Oral Tablet; (250 MG) MetFORMIN HCl 500 MG Oral Tablet; 1 daily (500 MG) Metoprolol Succinate ER 25 MG Oral Tablet Extended Release 24 Hour; 1 daily (25 MG) Spiriva Respimat 2.5 MCG/ACT Inhalation Aerosol Solution; 2 puffs Aerosol Soln once a day for 90 days Ordered: 13-Oct-2016 Start: 13-Oct-2016 Quantity: 3 Dut, NPC Leonard D Refills: 3 Spiriva Respimat 2.5 MCG/ACT Inhalation Aerosol Solution; 2 (two) Aerosol Soln daily for 90 days Ordered: 02-May-2018 Start: 02-May-2018 Quantity: 180 Dut, NPC Leonard D Refills: 3 VITAMIN C, 250MG (Oral Tablet); Comments: Medication taken as 1 as needed (250 MG) needed. VITAMIN D, 1000UNIT (Oral Tablet); 1 daily (1000 UNIT) Vitamin E 400 UNIT Oral Capsule; 1 (one) (400 UNIT) Xarelto 20 MG Oral Tablet; 1 daily (20 MG) ALLERGY MEDICATION, 25MG (Oral Status: Inactive Capsule); 1 daily (25 MG) AmLODIPine Besylate Status: Inactive MARCO A, 5-20MG (Oral Tablet); Status: Inactive 1/2 tab daily (5-20 MG) CPAP Status: Inactive Comments: 20cm H2O DOXYCYCLINE HYCLATE, 100MG Status: Inactive (Oral Capsule); 1 two times Comments: 1 week left (Tic ) daily (100 MG) MAGNESIUM, 250MG (Oral Tablet); Status: Inactive 1 daily (250 MG) ProAir HFA 108 (90 Base) MCG/ACT Inhalation Aerosol Solution; 2 (two) Puff(s) QID prn for 30 days Ordered: 15-Apr-2017 Start: 13-Oct-2016 End: 15-Apr-2017 Quantity: 1 CLAUDINE Mckinley Status: Inactive Refills: 5 Comments: Please substitute formulary preferred med prn SPIRIVA HANDIHALER, 18MCG (Inhalation Capsule); 1 puff Capsule daily for 90 days Ordered: 30-Jun-2016 Start: 08-Apr-2016 End: 30-Jun-2016 Quantity: 90 CLAUDINE Caba Status: Inactive Refills: 4 SYMBICORT, 160-4.5MCG/ACT (Inhalation Aerosol); 2 (two) puff(s) two times daily for 90 days Ordered: 14-Feb-2015 Start: 09-May-2014 End: 14-Feb-2015 Quantity: 3 CLAUDINE Batista Status: Inactive Refills: 3 Dispense as Written TRAMADOL HCL, 50MG (Oral Status: Inactive Tablet); 1 as needed (50 MG) Comments: Medication taken as needed. Ventolin HFA 108 (90 Base) MCG/ACT Inhalation Aerosol Solution; 2 Puff(s) four times daily, as needed for 90 days Ordered: 13-Oct-2016 Start: 2015 End: 13-Oct-2016 Quantity: 3 CLAUDINE Caba Status: Inactive Refills: 3 Comments: Medication taken as needed. VITAMIN E, 100UNIT (Oral Status: Inactive Capsule); 1 daily (100 UNIT) STIOLTO RESPIMAT, 2.5MCQ/ACT (Inhalation Aerosol Breath Activated) (Free Text) ; 2 (two) Aero Breath Act daily for 90 days Ordered: 04-Mar-2015 Start: Feb-2015 End: 20-Aug-2015 Quantity: 3 CLAUDINE Batista Status: Discontinued Refills: 3 STIOLTO RESPIMAT, 2.5MCQ/ACT (Inhalation Aerosol Breath Activated) (Free Text) ; 2 (two) Aero Breath Act daily for 90 days Ordered: 04-Mar-2015 Start: Feb-2015 End: 20-Aug-2015 Quantity: 180 CLAUDINE Batista Meka Status: Discontinued Refills: 3 Comments: This order discontinued per [employer]. Procedures RESPIRATORY FLOW VOLUME LOOP MD Finn Kumar Status: Completed 2017 ([id number]) PRE AND POST W/ RT ([id number]) LIZANDRO Bronson Status: Completed 02-May-2018 REST OXIMETRY (29142) Andra Gaspar E Status: Completed 14-Oct-2017 RESPIRATORY FLOW VOLUME LOOP LaFemilye, Andra E Status: Completed 14-Oct-2017 (29669) REST OXIMETRY (06531) Sherif, RT Rinu Status: Completed 15-Apr-2017 RESPIRATORY FLOW VOLUME LOOP Hserif, RT Rinu Status: Completed 15-Apr-2017 (31366) REST OXIMETRY (46886) Sherif, RT Rinu Status: Completed 13-Oct-2016 RESPIRATORY FLOW VOLUME LOOP Sherif, RT Rinu Status: Completed 13-Oct-2016 ([id number]) RESPIRATORY FLOW VOLUME LOOP MD Finn Kumar Status: Completed 2015 (05957) PRE/POST W/ RT (31444) LIZANDRO Moralez Status: Completed 14-Feb-2015 REST OXIMETRY (05807) LIZANDRO Moralez Status: Completed 14-Feb-2015 PRE AND POST W/ RT ([id number]) LIZANDRO Bronson Status: Completed 30-Jan-2014 PRE AND POST (29903) KRAIG Sousa Status: Completed 31-Jul-2013 RESPIRATORY FLOW VOLUME LOOP CLAUDINE Valdez Payton Status: Completed 24-Jan-2013 (23962) PRE AND POST ([id number]) CLAUDINE Valdez Payton Status: Completed 24-Jan-2013 PRE/POST ([id number]) Porpiglio MSN SECURITY PATROL DRIVER, Gill Status: Completed 21-Jul-2012 REST/EXERCISE OXIMETRY (23373) Porpiglio MSN SECURITY PATROL DRIVER, Gill Status: Completed Jul-2012 RESPIRATORY FLOW VOLUME LOOP CLAUDINE Krusehan Status: Completed 2011 (72784) EXERCISE OXIMETRY (32245) KRAIG Sousabeth Status: Completed 25-Jan-2012 VITAL CAPACITY TEST (25364) KRAIG Sousa Status: Completed 25-Jan-2012 TOTAL BODY PLETHYSMOGRAPHY KRAIG Sousa Status: Completed 25-Jan-2012 (84758) THORACIC GAS VOLUME (39603) KRAIG Sousa Status: Completed 25-Jan-2012 MONOXIDE DIFFUSING CAPACITY KRAIG Sousa Status: Completed 25-Jan-2012 (98184) MEASURE AIRFLOW RESISTANCE KRAIG Sousa Status: Completed 25-Jan-2012 (27765) RESPIRATORY FLOW VOLUME LOOP Porpiglio MSN SECURITY PATROL DRIVER, Gill Status: Completed (32420) PRE/POST (10603) Porpiglio MSN SECURITY PATROL DRIVER, Gill Status: Completed 25-Jan-2012 REST OXIMETRY ([id number]) Date: 29-Apr-2011 Status: Completed 25-Jan-2012 Porpiglio MSN SECURITY PATROL DRIVER, Gill Comments: 97% on RA Pre/Post ([id number]) Date: 29-Apr-2011 Status: Completed 25-Jan-2012 CLAUDINE Lai Comments: Moderate Obstructive Airway Disease. FVC 3.58, 67 % predicted. FEV1 2.36, 57% predicted. FEV1/FVC 66% Cpap titration LIZANDRO Bronson Status: Completed 19-Oct-2005 Comments: Results:. CPAP [id number] with 20 minute ramp time Flu Vaccine CLAUDINE Mckinley Status: Completed 16-May-2016 Comments: approx date Flu Vaccine CLAUDINE Mckinley Status: Completed 16-May-2017 Comments: approx date Flu Vaccine Dona Waite Status: Completed 16-May-2015 Comments: pcp 05/16/2016 Full PFT LIZANDRO Bronson Status: Completed 25-Jan-2012 Comments: Results:. Mild Obstruction. Without Reversibility. No Restriction. Normal Diffusion Capacity. Hernia Repair Dona Waite Status: Completed Comments: 1951 and 1996 Pneumovax Dona Waite Status: Completed 30-Sep-2016 Polysomnography LIZANDRO Bronson Status: Completed 19-Aug-2005 Comments: Results:. Moderate to severe TETO; AHI: 24/hour; LS: 60% Pre and Post LIZANDRO Bronsonjah D Status: Completed 29-Apr-2011 Comments: Results:. Moderate Obstructive Airway Disease. FVC 3.58, 67% predicted. FEV1 2.36, 57% predicted. FEV1/FVC 66% Prevnar 13 Dona Waite Status: Completed 16-Jul-2015 Comments: pcp Procedure: PRE AND POST W/ RT ([id number])Result: Date: 14-Oct-2017 14:47 Hemoptysis: No Status: Completed 14-Oct-2017 14:48 Dut, NPC Leonard D Procedure: PRE AND POST W/ RT ([id number])Result: Status: Completed 15-Apr-2017 14:03 Hemoptysis: No Dut, NPC Leonard D Procedure: PRE AND POST W/ RT ([id number])Result: Status: Completed 13-Oct-2016 11:02 Hemoptysis: No Dut, NPC Leonard D Procedure: PRE AND POST W/ RT ([id number])Result: Status: Completed 08-Apr-2016 12:25 Hemoptysis: No Dut, NPC Leonard D Procedure: PRE AND POST ([id number])Result: Status: Completed 11-Sep-2015 12:52 Hemoptysis: No MD Finn Kumar Procedure: RESPIRATORY FLOW VOLUME LOOP Date: 29-Apr-2011 14:09 ([id number])Result: CLAUDINE Lai Hemoptysis: No; Medication Used: Albuterol 0.083% sabrina aerosol; Steel Loader: Johanna Lai LPN Immunizations Influenza (3 years and up) On: 20-Jun-2012 Comments:Date approximate Influenza (3 years and up) On: 31-May-2013 Comments:Date approximate Influenza (3 years and up) On: 16-Jul-2014 Comments:approx. date Influenza (3 years and up) On: 16-May-2015 Comments:pcp Influenza (3 years and up) On: 16-May-2016 Comments:DR WADE Influenza (3 years and up) On: 16-May-2017 Comments:approx date Pneumococcal (2 years and up) On: 30-Sep-2016 Comments:DR WADE Pneumococcal conjugate vaccine, 13 valent, IM On: 16-Jul-2016 Comments:WILLIAM BOOKER Pneumococcal conjugate vaccine, 13 valent, IM On: 16-Jul-2015 Comments:pcp Zoster (shingles) On: 16-Aug-2016 Comments:WILLIAM SHAHRIARGIA Family History Lung/Respiratory Disease Status: Active Comments: Negative Family History Of. Sleep Apnea Status: Active Comments: Negative Family History Of. Social History Alcohol use: Occasional alcohol use. Drinks beer. Caffeine use: Coffee. 1 serving / day. 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 No caffeine use No drug use Tobacco use: Former smoker. Remotely quit tobacco use. Smoked cigarettes. Comments: Smoked from age [age]. Up to 1.5ppd Former smoker Male Plan of Treatment PRE AND POST W/ RT ([id number]) Start: 31-Oct-2018 Intent Medical; PRE AND POST RT - 6 mnth, , PPRT Start: 19-Oct-2018 9:00 Appointment Request [facility] Resp Therapy [place] [facility], RT[facility] Medical; FOLLOW UP 30 - 6 mnth, , PPRT Start: 19-Oct-2018 9:15 Appointment Request [facility] Dut, LIZANDRO Guevara SLEEP APNEA : Discussed potential health risks associated with untreated sleep apnea Indication: SLEEP APNEA COPD (CHRONIC OBSTRUCTIVE PULMONARY DISEASE) : Influenza vaccine seasonally Indication: COPD (CHRONIC OBSTRUCTIVE PULMONARY DISEASE) COPD (CHRONIC OBSTRUCTIVE PULMONARY DISEASE) : Medication compliance reinforced Indication: COPD (CHRONIC OBSTRUCTIVE PULMONARY DISEASE) SLEEP APNEA : Discussed potential health risks associated with untreated sleep apnea Indication: SLEEP APNEA COPD (CHRONIC OBSTRUCTIVE PULMONARY DISEASE) : Influenza vaccine seasonally Indication: COPD (CHRONIC OBSTRUCTIVE PULMONARY DISEASE) SLEEP APNEA : Discussed potential health risks associated with untreated sleep apnea Indication: SLEEP APNEA COPD (CHRONIC OBSTRUCTIVE PULMONARY DISEASE) : Influenza vaccine seasonally Indication: COPD (CHRONIC OBSTRUCTIVE PULMONARY DISEASE) COPD (CHRONIC OBSTRUCTIVE PULMONARY DISEASE) : Medication compliance reinforced Indication: COPD (CHRONIC OBSTRUCTIVE PULMONARY DISEASE) SLEEP APNEA : Discussed potential health risks associated with untreated sleep apnea Indication: SLEEP APNEA COPD (CHRONIC OBSTRUCTIVE PULMONARY DISEASE) : Influenza vaccine seasonally Indication: COPD (CHRONIC OBSTRUCTIVE PULMONARY DISEASE) COPD (CHRONIC OBSTRUCTIVE PULMONARY DISEASE) : Medication compliance reinforced Indication: COPD (CHRONIC OBSTRUCTIVE PULMONARY DISEASE) SLEEP APNEA : Discussed potential health risks associated with untreated sleep apnea Indication: SLEEP APNEA COPD (CHRONIC OBSTRUCTIVE PULMONARY DISEASE) : Influenza vaccine seasonally Indication: COPD (CHRONIC OBSTRUCTIVE PULMONARY DISEASE) COPD (CHRONIC OBSTRUCTIVE PULMONARY DISEASE) : Medication compliance reinforced Indication: COPD (CHRONIC OBSTRUCTIVE PULMONARY DISEASE) SLEEP APNEA : Discussed possible cardiovascular effects of untreated sleep apnea Indication: SLEEP APNEA SLEEP APNEA : Discussed the importance of compliance Indication: SLEEP APNEA SLEEP APNEA : Weight Loss Indication: SLEEP APNEA SLEEP APNEA : Cpap Supplies Indication: SLEEP APNEA SLEEP APNEA : Continue with Cpap therapy Indication: SLEEP APNEA COPD (CHRONIC OBSTRUCTIVE PULMONARY DISEASE) : FU EITHER Indication: COPD (CHRONIC OBSTRUCTIVE PULMONARY DISEASE) COPD (CHRONIC OBSTRUCTIVE PULMONARY DISEASE) : Follow up in 6 months Indication: COPD (CHRONIC OBSTRUCTIVE PULMONARY DISEASE) COPD (CHRONIC OBSTRUCTIVE PULMONARY DISEASE) : Full [place] Indication: COPD (CHRONIC OBSTRUCTIVE PULMONARY DISEASE) COPD (CHRONIC OBSTRUCTIVE PULMONARY DISEASE) : Oximetry - Rest and exercise next visit Indication: COPD (CHRONIC OBSTRUCTIVE PULMONARY DISEASE) COPD (CHRONIC OBSTRUCTIVE PULMONARY DISEASE) : Call with symptoms Indication: COPD (CHRONIC OBSTRUCTIVE PULMONARY DISEASE) COPD (CHRONIC OBSTRUCTIVE PULMONARY DISEASE) : Influenza vaccine in Fall Indication: COPD (CHRONIC OBSTRUCTIVE PULMONARY DISEASE) COPD (CHRONIC OBSTRUCTIVE PULMONARY DISEASE) : Continue current medications Indication: COPD (CHRONIC OBSTRUCTIVE PULMONARY DISEASE) Results No Result Information Available Vital Signs 02-May-2018 15:01 Temperature 99.3 f Comments: Method: Tympanic Pulse 88 /min Comments: Pattern: Regular Respiration Rate 14 /min Comments: Pattern: Unlabored O2 SAT 97 % Comments: Room air BP Systolic 126 mm[Hg] Comments: Patient Position: Sitting; Cuff Location: Left Arm; Cuff Size: Standard BP Diastolic 64 mm[Hg] Comments: Patient Position: Sitting; Cuff Location: Left Arm; Cuff Size: Standard Weight 358 lb Height 71.5 in BMI 49.23 kg/m2 BSA 2.71 m2 14-Oct-2017 14:48 Temperature 99.5 f Comments: Method: Tympanic Pulse 91 /min Comments: Pattern: Regular Respiration Rate 12 /min Comments: Pattern: Unlabored O2 SAT 98 % Comments: Room air BP Systolic 130 mm[Hg] Comments: Patient Position: Sitting; Cuff Location: Left Arm; Cuff Size: Standard BP Diastolic 84 mm[Hg] Comments: Patient Position: Sitting; Cuff Location: Left Arm; Cuff Size: Standard Weight 357 lb Height 72 in BMI 48.42 kg/m2 BSA 2.73 m2 15-Apr-2017 14:03 Temperature 98.6 f Comments: Method: Tympanic Pulse 63 /min Comments: Pattern: Regular Respiration Rate 14 /min Comments: Pattern: Unlabored O2 SAT 96 % Comments: Room air BP Systolic 150 mm[Hg] Comments: Patient Position: Sitting; Cuff Location: Left Arm; Cuff Size: Standard BP Diastolic 80 mm[Hg] Comments: Patient Position: Sitting; Cuff Location: Left Arm; Cuff Size: Standard Weight 356 lb Height 72 in BMI 48.28 kg/m2 BSA 2.72 m2 13-Oct-2016 11:02 Temperature 97.2 f Comments: Method: Tympanic Pulse 64 /min Comments: Pattern: Regular Respiration Rate 16 /min Comments: Pattern: Unlabored O2 SAT 96 % Comments: Room air BP Systolic 108 mm[Hg] Comments: Patient Position: Sitting; Cuff Location: Left Arm; Cuff Size: Standard BP Diastolic 70 mm[Hg] Comments: Patient Position: Sitting; Cuff Location: Left Arm; Cuff Size: Standard Weight 352 lb Height 72 in BMI 47.74 kg/m2 BSA 2.71 m2 08-Apr-2016 12:25 Temperature 99.3 f Comments: Method: Tympanic Pulse 64 /min Comments: Pattern: Regular Respiration Rate 16 /min Comments: Pattern: Unlabored O2 SAT 98 % Comments: Room air BP Systolic 140 mm[Hg] Comments: Patient Position: Sitting; Cuff Location: Left Arm; Cuff Size: Standard BP Diastolic 60 mm[Hg] Comments: Patient Position: Sitting; Cuff Location: Left Arm; Cuff Size: Standard Weight 344 lb Height 72 in BMI 46.65 kg/m2 BSA 2.68 m2 11-Sep-2015 12:52 Temperature 98 f Comments: Method: Tympanic Pulse 62 /min Comments: Pattern: Regular Respiration Rate 15 /min Comments: Pattern: Unlabored O2 SAT 95 % Comments: Room air BP Systolic 120 mm[Hg] Comments: Patient Position: Sitting; Cuff Location: Left Arm; Cuff Size: Standard BP Diastolic 74 mm[Hg] Comments: Patient Position: Sitting; Cuff Location: Left Arm; Cuff Size: Standard Weight 350 lb Height 72 in BMI 47.47 kg/m2 BSA 2.7 m2 14-Feb-2015 15:32 Temperature 99 f Comments: Method: Tympanic Pulse 64 /min Comments: Pattern: Regular Respiration Rate 14 /min Comments: Pattern: Unlabored O2 SAT 96 % Comments: Room air BP Systolic 120 mm[Hg] Comments: Patient Position: Sitting; Cuff Location: Left Arm; Cuff Size: Standard BP Diastolic 78 mm[Hg] Comments: Patient Position: Sitting; Cuff Location: Left Arm; Cuff Size: Standard Weight 342 lb Height 72 in BMI 46.38 kg/m2 BSA 2.68 m2 30-Jan-2014 15:18 Temperature 98.6 f Comments: Method: Oral Pulse 78 /min Comments: Pattern: Regular Respiration Rate 16 /min Comments: Pattern: Unlabored O2 SAT 98 % Comments: Room air BP Systolic 124 mm[Hg] Comments: Patient Position: Sitting; Cuff Location: Left Arm; Cuff Size: Large BP Diastolic 80 mm[Hg] Comments: Patient Position: Sitting; Cuff Location: Left Arm; Cuff Size: Large Weight 379 lb Height 72 in BMI 51.4 kg/m2 BSA 2.8 m2 31-Jul-2013 15:25 Temperature 98.8 f Comments: Method: Tympanic Pulse 68 /min Comments: Pattern: Regular Respiration Rate 16 /min Comments: Pattern: Unlabored O2 SAT 98 % Comments: Room air BP Systolic 124 mm[Hg] Comments: Patient Position: Sitting; Cuff Location: Left Arm; Cuff Size: Large BP Diastolic 61 mm[Hg] Comments: Patient Position: Sitting; Cuff Location: Left Arm; Cuff Size: Large Weight 382 lb Height 72 in BMI 51.81 kg/m2 BSA 2.8 m2 24-Jan-2013 15:38 Temperature 98.8 f Comments: Method: Tympanic Pulse 66 /min Comments: Pattern: Regular Respiration Rate 18 /min Comments: Pattern: Unlabored O2 SAT 96 % Comments: Room air BP Systolic 136 mm[Hg] Comments: Patient Position: Sitting; Cuff Location: Right Arm; Cuff Size: Large BP Diastolic 82 mm[Hg] Comments: Patient Position: Sitting; Cuff Location: Right Arm; Cuff Size: Large Weight 383 lb Height 72 in BMI 51.94 kg/m2 BSA 2.81 m2 21-Jul-2012 13:18 Temperature 98.6 f Comments: Method: Tympanic Pulse 73 /min Comments: Pattern: Regular Respiration Rate 16 /min Comments: Pattern: Unlabored O2 SAT 95 % Comments: Room air BP Systolic 134 mm[Hg] Comments: Patient Position: Sitting; Cuff Location: Left Arm; Cuff Size: Large BP Diastolic 83 mm[Hg] Comments: Patient Position: Sitting; Cuff Location: Left Arm; Cuff Size: Large Weight 377 lb Height 72 in BMI 51.13 kg/m2 BSA 2.79 m2 25-Jan-2012 8:52 Comments: Room air exercise sat 93% Temperature 98.6 f Comments: Method: Tympanic Pulse 71 /min Comments: Pattern: Regular Respiration Rate 16 /min Comments: Pattern: Unlabored O2 SAT 95 % Comments: Room air BP Systolic 138 mm[Hg] Comments: Patient Position: Sitting; Cuff Location: Right Arm; Cuff Size: Large BP Diastolic 80 mm[Hg] Comments: Patient Position: Sitting; Cuff Location: Right Arm; Cuff Size: Large Weight 381 lb Height 72 in BMI 51.67 kg/m2 BSA 2.8 m2 29-Apr-2011 14:15 Temperature 97.6 f Comments: Method: Tympanic Pulse 60 /min Comments: Pattern: Regular Respiration Rate 22 /min Comments: Pattern: Unlabored O2 SAT 97 % Comments: Room air BP Systolic 128 mm[Hg] Comments: Patient Position: Sitting; Cuff Location: Left Arm; Cuff Size: Standard BP Diastolic 72 mm[Hg] Comments: Patient Position: Sitting; Cuff Location: Left Arm; Cuff Size: Standard Weight 313 lb Height 72 in BMI 42.45 kg/m2 BSA 2.58 m2 Advance Directives HIPAA - Effective on 10/14/2017. Expiration date unspecified. Effective: 2017 Scanned Document is available upon request. Encounters Office Visit 02-May-2018 14:52 To 02-May-2018 15:38 Encounter Reason: COPD - The last clinic visit was 6 month(s) ago. No changes in management were made at the last visit. Symptoms include dyspnea on exertion and wheezing, while symptoms do not include non-productive [facility] Office gh or productive cough. Onset was gradual year(s) ago. The symptoms occur occasionally. The episodes occur daily. The patient describes this as mild and unchanged. Symptoms are exacerbated by activity. Symptoms are relieved by inhaler use and rest. Associated symptoms do not include fever, weakness, hemoptysis or chest pain. Current treatment includes inhaled short-acting beta-2 agonists, inhaled long -acting beta-2 agonists, inhaled anticholinergics and inhaled corticosteroids. By report there is good compliance with treatment, good tolerance of treatment and good symptom control. Pertinent medical history includes smoking (has quit) and obstructive sleep apnea, while pertinent medical history does not include asthma or lung cancer. The patient is currently able to do activities of daily living wi thout limitations, able to do housework without limitations and able to participate in sports with limitations (hunts). The patient was previously evaluated in this clinic. Past evaluation has included chest x-ray, pulse oximetry, pulmonary function tests and pulmonology evaluation. Past treatment has included inhaled short-acting beta-2 agonists, inhaled long-acting beta-2 agonists, inhaled anticholi nergics, inhaled corticosteroids and influenza vaccine. Encounter Diagnosis: COPD (CHRONIC OBSTRUCTIVE PULMONARY DISEASE), MORBID OBESITY Office Visit 14-Oct-2017 14:28 To 14-Oct-2017 15:21 Encounter Reason: COPD - The last clinic visit was 6 month(s) ago. No changes in management were made at the last visit. Symptoms include dyspnea on exertion and wheezing, while symptoms do not include non-productive [facility] Office gh or productive cough. Onset was gradual year(s) ago. The symptoms occur occasionally. The episodes occur daily. The patient describes this as mild and improving. Symptoms are exacerbated by activity. Symptoms are relieved by inhaler use and rest. Associated symptoms do not include fever, weakness, hemoptysis or chest pain. Current treatment includes inhaled short-acting beta-2 agonists, inhaled long -acting beta-2 agonists, inhaled anticholinergics and inhaled corticosteroids. By report there is good compliance with treatment, good tolerance of treatment and good symptom control. Pertinent medical history includes smoking (has quit) and obstructive sleep apnea, while pertinent medical history does not include asthma or lung cancer. The patient is currently able to do activities of daily living wi thout limitations, able to do housework without limitations and able to participate in sports with limitations (hunts). The patient was previously evaluated in this clinic. Past evaluation has included chest x-ray, pulse oximetry, pulmonary function tests and pulmonology evaluation. Past treatment has included inhaled short-acting beta-2 agonists, inhaled long-acting beta-2 agonists, inhaled anticholi nergics, inhaled corticosteroids and influenza vaccine. Encounter Diagnosis: COPD (CHRONIC OBSTRUCTIVE PULMONARY DISEASE), MORBID OBESITY Office Visit 15-Apr-2017 13:46 To 15-Apr-2017 14:53 Encounter Reason: COPD - The last clinic visit was 6 month(s) ago. No changes in management were made at the last visit. Symptoms include dyspnea on exertion and wheezing, while symptoms do not include non-productive [facility] Office gh or productive cough. Onset was gradual year(s) ago. The symptoms occur occasionally. The episodes occur daily. The patient describes this as mild and improving. Symptoms are exacerbated by activity. Symptoms are relieved by inhaler use and rest. Associated symptoms do not include fever, weakness, hemoptysis or chest pain. Current treatment includes inhaled short-acting beta-2 agonists, inhaled long -acting beta-2 agonists, inhaled anticholinergics and inhaled corticosteroids. By report there is good compliance with treatment, good tolerance of treatment and good symptom control. Pertinent medical history includes smoking (has quit) and obstructive sleep apnea, while pertinent medical history does not include asthma or lung cancer. The patient is currently able to do activities of daily living wi thout limitations, able to do housework without limitations and able to participate in sports with limitations (hunts). The patient was previously evaluated in this clinic. Past evaluation has included chest x-ray, pulse oximetry, pulmonary function tests and pulmonology evaluation. Past treatment has included inhaled short-acting beta-2 agonists, inhaled long-acting beta-2 agonists, inhaled anticholi nergics, inhaled corticosteroids and influenza vaccine. Encounter Diagnosis: COPD (CHRONIC OBSTRUCTIVE PULMONARY DISEASE), SLEEP APNEA , MORBID OBESITY, ALLERGIC RHINITIS Office Visit 13-Oct-2016 10:49 To 13-Oct-2016 12:23 Encounter Reason: COPD - The last clinic visit was 6 month(s) ago. No changes in management were made at the last visit. Symptoms include dyspnea on exertion and wheezing, while symptoms do not include non-productive [facility] Office gh or productive cough. Onset was gradual year(s) ago. The symptoms occur occasionally. The episodes occur daily. The patient describes this as mild and improving. Symptoms are exacerbated by activity. Symptoms are relieved by inhaler use and rest. Associated symptoms do not include fever, weakness, hemoptysis or chest pain. Current treatment includes inhaled short-acting beta-2 agonists, inhaled long -acting beta-2 agonists, inhaled anticholinergics and inhaled corticosteroids. By report there is good compliance with treatment, good tolerance of treatment and good symptom control. Pertinent medical history includes smoking (has quit) and obstructive sleep apnea, while pertinent medical history does not include asthma or lung cancer. The patient is currently able to do activities of daily living wi thout limitations, able to do housework without limitations and able to participate in sports with limitations (hunts). The patient was previously evaluated in this clinic. Past evaluation has included chest x-ray, pulse oximetry, pulmonary function tests and pulmonology evaluation. Past treatment has included inhaled short-acting beta-2 agonists, inhaled long-acting beta-2 agonists, inhaled anticholi nergics, inhaled corticosteroids and influenza vaccine. Encounter Diagnosis: COPD (CHRONIC OBSTRUCTIVE PULMONARY DISEASE), MORBID OBESITY, SLEEP APNEA Medication Order 30-Jun-2016 9:04 To 30-Jun-2016 10:41 Encounter Diagnosis: COPD (CHRONIC OBSTRUCTIVE PULMONARY DISEASE) [facility] Medication Order 17-Apr-2016 15:48 To 17-Apr-2016 15:54 Encounter Diagnosis: COPD (CHRONIC OBSTRUCTIVE PULMONARY DISEASE) [facility] Office Visit 08-Apr-2016 12:00 To 08-Apr-2016 15:32 Encounter Reason: COPD - The last clinic visit was 7 month(s) ago. No changes in management were made at the last visit. Symptoms include dyspnea on exertion and wheezing, while symptoms do not include non-productive [facility] Office gh or productive cough. Onset was gradual year(s) ago. The symptoms occur occasionally. The episodes occur daily. The patient describes this as mild and improving. Symptoms are exacerbated by activity. Symptoms are relieved by inhaler use and rest. Associated symptoms do not include fever, weakness, hemoptysis or chest pain. Current treatment includes inhaled short-acting beta-2 agonists, inhaled long -acting beta-2 agonists, inhaled anticholinergics and inhaled corticosteroids. By report there is good compliance with treatment, good tolerance of treatment and good symptom control. Pertinent medical history includes smoking (has quit) and obstructive sleep apnea, while pertinent medical history does not include asthma or lung cancer. The patient is currently able to do activities of daily living wi thout limitations, able to do housework without limitations and able to participate in sports with limitations (hunts). The patient was previously evaluated in this clinic. Past evaluation has included chest x-ray, pulse oximetry, pulmonary function tests and pulmonology evaluation. Past treatment has included inhaled short-acting beta-2 agonists, inhaled long-acting beta-2 agonists, inhaled anticholi nergics, inhaled corticosteroids and influenza vaccine. Encounter Diagnosis: COPD (CHRONIC OBSTRUCTIVE PULMONARY DISEASE), MORBID OBESITY, SLEEP APNEA Office Visit 11-Sep-2015 12:46 To 11-Sep-2015 13:35 Encounter Reason: COPD - The last clinic visit was 6 month(s) ago. No changes in management were made at the last visit. Symptoms include dyspnea on exertion and wheezing, while symptoms do not include non-productive [facility] Office gh or productive cough. Onset was gradual year(s) ago. The symptoms occur occasionally. The episodes occur daily. The patient describes this as mild and improving. Symptoms are exacerbated by activity. Symptoms are relieved by inhaler use and rest. Associated symptoms do not include fever, weakness, hemoptysis or chest pain. Current treatment includes inhaled short-acting beta-2 agonists, inhaled long -acting beta-2 agonists, inhaled anticholinergics and inhaled corticosteroids. By report there is good compliance with treatment, good tolerance of treatment and good symptom control. Pertinent medical history includes smoking (has quit) and obstructive sleep apnea, while pertinent medical history does not include asthma or lung cancer. The patient is currently able to do activities of daily living wi thout limitations, able to do housework without limitations and able to participate in sports with limitations (hunts). The patient was previously evaluated in this clinic. Past evaluation has included chest x-ray, pulse oximetry, pulmonary function tests and pulmonology evaluation. Past treatment has included inhaled short-acting beta-2 agonists, inhaled long-acting beta-2 agonists, inhaled anticholi nergics, inhaled corticosteroids and influenza vaccine. Encounter Diagnosis: COPD (CHRONIC OBSTRUCTIVE PULMONARY DISEASE), MORBID OBESITY, SLEEP APNEA Medication Order 20-Aug-2015 14:31 To 21-Aug-2015 9:34 Encounter Diagnosis: COPD (CHRONIC OBSTRUCTIVE PULMONARY DISEASE) [facility] Medication Order 04-Mar-2015 12:39 To 04-Mar-2015 15:30 Encounter Diagnosis: COPD (CHRONIC OBSTRUCTIVE PULMONARY DISEASE) [facility] Office Office Visit 14-Feb-2015 15:23 To 14-Feb-2015 16:28 Encounter Reason: Sleep FU - The patient sleeps an average of 8 hours per night. Using Cpap and has no complaints (Mask and pressure are comfortable. Has been getting new mask and supplies through [employer] every 6 [facility] months. Has been wearing CPAP faithfully every night.). The patient feels less sleepy and has no complaints. Impact of disease: no overall impact. Nutrition: balanced diet. The amount of alcohol con sumed is 2 drinks per month. Current medication use: compliant with dosing regimen. Note for "TETO follow up": FEBRUARY 14, 2015Clconcepcion is using his CPAP all night every night doing very well with that someti mes he gets dry. He has been able to drop his weight significantly., [ ADDITIONAL REASON] COPD - The last clinic visit was 6 month(s) ago. No changes in management were m deshawn at the last visit. Symptoms include dyspnea on exertion and wheezing, while symptoms do not include non-productive cough or productive cough. Onset was gradual year(s) ago. The symptoms occur occasi onally. The episodes occur daily. The patient describes this as mild and improving. Symptoms are exacerbated by activity. Symptoms are relieved by inhaler use and rest. Associated symptoms do not includ e fever, weakness, hemoptysis or chest pain. Current treatment includes inhaled short-acting beta-2 agonists, inhaled long-acting beta-2 agonists, inhaled anticholinergics and inhaled corticosteroids. B y report there is good compliance with treatment, good tolerance of treatment and good symptom control. Pertinent medical history includes smoking (has quit) and obstructive sleep apnea, while pertinent medical history does not include asthma or lung cancer. The patient is currently able to do activities of daily living without limitations, able to do housework without limitations and able to particip ate in sports with limitations (hunenoz). The patient was previously evaluated in this clinic 6 month(s) ago. Past evaluation has included chest x-ray, pulse oximetry, pulmonary function tests and pulmono logy evaluation. Past treatment has included inhaled short-acting beta-2 agonists, inhaled long-acting beta-2 agonists, inhaled anticholinergics, inhaled corticosteroids and influenza vaccine. Note for "COPD": February 14, 2015 Binu doing well but he needs to use albuterol on occasion. He has no fevers or chills no coughing up blood and no medication side effects. Encounter Diagnosis: COPD (CHRONIC OBSTRUCTIVE PULMONARY DISEASE), SLEEP APNEA Medication Order 26-Sep-2014 11:49 To 26-Sep-2014 12:26 Encounter Diagnosis: COPD (CHRONIC OBSTRUCTIVE PULMONARY DISEASE) [facility] Medication Order 09-May-2014 9:16 To 09-May-2014 13:50 Encounter Diagnosis: COPD (CHRONIC OBSTRUCTIVE PULMONARY DISEASE) [facility] Office Visit 30-Jan-2014 15:16 To 30-Jan-2014 16:31 Encounter Reason: COPD - The last clinic visit was 6 month(s) ago. No changes in management were made at the last visit. Symptoms include dyspnea on exertion and wheezing, while symptoms do not include non-productive cou [facility] gh or productive cough. Onset was gradual year(s) ago. The symptoms occur occasionally. The episodes occur daily. The patient describes this as mild and improving. Symptoms are exacerbated by activity. Symptoms are relieved by inhaler use and rest. Associated symptoms do not include fever, weakness, hemoptysis or chest pain. Current treatment includes inhaled short-acting beta-2 agonists, inhaled long -acting beta-2 agonists, inhaled anticholinergics and inhaled corticosteroids. By report there is good compliance with treatment, good tolerance of treatment and good symptom control. Pertinent medical history includes smoking (has quit) and obstructive sleep apnea, while pertinent medical history does not include asthma or lung cancer. The patient is currently able to do activities of daily living wi thout limitations, able to do housework without limitations and able to participate in sports with limitations (hunts). The patient was previously evaluated in this clinic 6 month(s) ago. Past evaluatio n has included chest x-ray, pulse oximetry, pulmonary function tests and pulmonology evaluation. Past treatment has included inhaled short-acting beta-2 agonists, inhaled long-acting beta-2 agonists, in haled anticholinergics, inhaled corticosteroids and influenza vaccine., [ ADDITIONAL REASON] Sleep FU - The patient sleeps an average of 8 hours per night. Using Cpap and bob s no complaints (Mask and pressure are comfortable. Has been getting new mask and supplies through [employer] every 6 months. Has been wearing CPAP faithfully every night.). The patient feels le ss sleepy and has no complaints. Impact of disease: no overall impact. Nutrition: balanced diet. The amount of alcohol consumed is 2 drinks per month. Current medication use: compliant with dosing regimen. Encounter Diagnosis: COPD (CHRONIC OBSTRUCTIVE PULMONARY DISEASE), SLEEP APNEA , MORBID OBESITY Office Visit 31-Jul-2013 15:13 To 31-Jul-2013 16:13 Encounter Reason: COPD - The last clinic visit was 6 month(s) ago. Management changes made at the last visit include adding Symbicort, only using once a day, does not remember at night. Symptoms include dyspnea on [facility] on and wheezing, while symptoms do not include non-productive cough or productive cough. Onset was gradual year(s) ago. The symptoms occur occasionally. The episodes occur daily. The patient describes t his as mild and improving. Symptoms are exacerbated by activity. Symptoms are relieved by inhaler use and rest. Associated symptoms do not include fever, weakness, hemoptysis or chest pain. Current corin tment includes inhaled short-acting beta-2 agonists, inhaled long-acting beta- 2 agonists, inhaled anticholinergics and inhaled corticosteroids. By report there is good compliance with treatment, good to lerance of treatment and good symptom control. Pertinent medical history includes smoking (has quit) and obstructive sleep apnea, while pertinent medical history does not include asthma or lung cancer. The patient is currently able to do activities of daily living without limitations, able to do housework without limitations and able to participate in sports with limitations (hunts). The patient was p reviously evaluated in this clinic 6 month(s) ago. Past evaluation has included chest x-ray, pulse oximetry, pulmonary function tests and pulmonology evaluation. Note for "COPD": July 21, 2012 h e is using Spiriva once a day and albuterol only as needed he has no problems with her medication and in addition uses a Symbicort twice a day and does not rinse his mouth after but has had no issues. He has no increased shortness of breath fevers chills nausea vomiting abdominal pains or palpitations.01/24/2013Patient here in routine follow-up. Since his last appointment he has not required th e use of any oral corticosteroids or antibiotics for any respiratory infections. He is maintained on Spiriva and Symbicort. he also has Ventolin for rescue inhalation which he states he uses jolly roximately 3-4 a month. He gets shortness of breath with exertion, wheezing, but denies a cough and is relieved by rest.07/31/13Patient presents today for routine COPD and sleep apnea follow up. Leydi taylor is doing well on inhalers and he is using cpap machine every night as directed without complains. He denies increased symptoms or use of oral steroids with the last 6 months. Denies hospitalization or COPD exacebations since last visit., [ADDITIONAL REASON] Sleep FU - The patient sleeps an average of 8 hours per night. Using Cpap and has no complaints (Mask and pressure are comfortable. Has been getting new mask and supplies throug h [employer] every 6 months. Has been wearing CPAP faithfully every night.). The patient feels less sleepy and has no complaints and has decreased energy level (due to new job and stress level). Imp act of disease: no overall impact. Nutrition: balanced diet. The amount of alcohol consumed is 2 drinks per month. Current medication use: compliant with dosing regimen. Encounter Diagnosis: COPD (CHRONIC OBSTRUCTIVE PULMONARY DISEASE), SLEEP APNEA , MORBID OBESITY Medication Order 12-May-2013 16:40 To 15-May-2013 10:27 Encounter Diagnosis: COPD (CHRONIC OBSTRUCTIVE PULMONARY DISEASE) (496) [facility] Medication Order 05-Apr-2013 15:10 To 05-Apr-2013 16:11 Encounter Diagnosis: COPD (CHRONIC OBSTRUCTIVE PULMONARY DISEASE) (496) [facility] Office Visit 24-Jan-2013 14:57 To 24-Jan-2013 16:22 Encounter Reason: COPD - The last clinic visit was 6 month(s) ago. Management changes made at the last visit include adding Symbicort, only using once a day, does not remember at night. Symptoms include dyspnea on exerti [facility] on and wheezing, while symptoms do not include non-productive cough or productive cough. Onset was gradual year(s) ago. The symptoms occur occasionally. The episodes occur daily. The patient describes t his as mild and improving. Symptoms are exacerbated by activity. Symptoms are relieved by inhaler use and rest. Associated symptoms do not include fever, weakness, hemoptysis or chest pain. Current corin tment includes inhaled short-acting beta-2 agonists, inhaled long-acting beta- 2 agonists, inhaled anticholinergics and inhaled corticosteroids. By report there is good compliance with treatment, good to lerance of treatment and good symptom control. Pertinent medical history includes smoking (has quit) and obstructive sleep apnea, while pertinent medical history does not include asthma or lung cancer. The patient is currently able to do activities of daily living without limitations, able to do housework without limitations and able to participate in sports with limitations (hunenzo). The patient was p reviously evaluated in this clinic 6 month(s) ago. Past evaluation has included chest x-ray, pulse oximetry, pulmonary function tests and pulmonology evaluation. Note for "COPD": July 21, 2012 h samantha is using Spiriva once a day and albuterol only as needed he has no problems with her medication and in addition uses a Symbicort twice a day and does not rinse his mouth after but has had no issues. He has no increased shortness of breath fevers chills nausea vomiting abdominal pains or palpitations.01/24/2013Patient here in routine follow-up. Since his last appointment he has not required the u se of any oral corticosteroids or antibiotics for any respiratory infections. He is maintained on Spiriva and Symbicort. he also has Ventolin for rescue inhalation which he states he uses approximatel y 3-4 a month. He gets shortness of breath with exertion, wheezing, but denies a cough and is relieved by rest., [ADDITIONAL REASON] Sleep FU - The patient sleeps an average of 8 hours per night. Using Cpap and bob s no complaints (Mask and pressure are comfortable. Has been getting new mask and supplies through [employer] every 6 months. Has been wearing CPAP faithfully every night.). The patient feels le ss sleepy and has no complaints and has decreased energy level (due to new job and stress level). Impact of disease: no overall impact. Nutrition: balanced diet. The amount of alcohol consumed is 2 drin ks per month. Current medication use: compliant with dosing regimen. Note for "TETO follow up": July 21, 2012 he is doing very well with the CPAP using it all night every night and has even made arrangements that if he goes away to take it with him. He is working on weight loss. He has no problems with the mask tubing unit or other issues.01/24/2013Patient here in routine follow-up f or sleep apnea. He is wearing his device nightly and sleeping approximately 8- 9 hours per night. His device is in good working order and he denies snoring or witnessed apneic episodes with his device. Encounter Diagnosis: COPD (CHRONIC OBSTRUCTIVE PULMONARY DISEASE) (496), APNEA , SLEEP (780.57), OBESITY (Renamed from OBESE) Office Visit 21-Jul-2012 13:03 To 21-Jul-2012 14:00 Encounter Reason: Sleep FU - The patient sleeps an average of 8 hours per night. Using Cpap and has no complaints (Mask and pressure are comfortable. Has been getting new mask and supplies through [employer] every 6 [facility] months. Has been wearing CPAP faithfully every night.). The patient feels less sleepy and has no complaints and has decreased energy level (due to new job and stress level). Impact of disease: no ov erall impact. Nutrition: balanced diet. The amount of alcohol consumed is 2 drinks per month. Current medication use: compliant with dosing regimen. Note for "TETO follow up": July 21, 2012 he is do ing very well with the CPAP using it all night every night and has even made arrangements that if he goes away to take it with him. He is working on weight loss. He has no problems with the mask tubing unit or other issues., [ADDITIONAL REASON] COPD - The last clinic visit was 6 month(s) ago. Management changes made at the last visit include adding Symbicort, only using once a day, does not remember at night. Symptoms incl ude dyspnea on exertion and wheezing, while symptoms do not include non- productive cough or productive cough. Onset was gradual year(s) ago. The symptoms occur occasionally. The episodes occur daily. Th e patient describes this as mild and improving. Symptoms are exacerbated by activity. Symptoms are relieved by inhaler use and rest. Associated symptoms do not include fever, weakness, hemoptysis or castillo st pain. Current treatment includes inhaled short-acting beta-2 agonists, inhaled long-acting beta-2 agonists, inhaled anticholinergics and inhaled corticosteroids. By report there is good compliance wi th treatment, good tolerance of treatment and good symptom control. Pertinent medical history includes smoking (has quit) and obstructive sleep apnea, while pertinent medical history does not include as thma or lung cancer. The patient is currently able to do activities of daily living without limitations, able to do housework without limitations and able to participate in sports with limitations (lopez s). The patient was previously evaluated in this clinic 6 month(s) ago. Past evaluation has included chest x-ray, pulse oximetry, pulmonary function tests and pulmonology evaluation. Note for "COPD": July 21, 2012 he is using Spiriva once a day and albuterol only as needed he has no problems with her medication and in addition uses a Symbicort twice a day and does not rinse his mouth after but bob s had no issues. He has no increased shortness of breath fevers chills nausea vomiting abdominal pains or palpitations. Encounter Diagnosis: COPD (CHRONIC OBSTRUCTIVE PULMONARY DISEASE) (496), APNEA , SLEEP (780.57) Office Visit 25-Jan-2012 8:44 To 25-Jan-2012 9:47 Encounter Reason: COPD - The last clinic visit was 6 month(s) ago. Management changes made at the last visit include adding Symbicort, only using once a day, does not remember at night. Symptoms include dyspnea on [facility] on and wheezing, while symptoms do not include non-productive cough or productive cough. Onset was gradual year(s) ago. The symptoms occur occasionally. The episodes occur daily. The patient describes t his as mild and improving. Symptoms are exacerbated by activity. Symptoms are relieved by inhaler use and rest. Associated symptoms do not include fever, weakness, hemoptysis or chest pain. Current corin tment includes inhaled short-acting beta-2 agonists, inhaled long-acting beta- 2 agonists, inhaled anticholinergics and inhaled corticosteroids. By report there is good compliance with treatment, good to lerance of treatment and good symptom control. Pertinent medical history includes smoking (has quit) and obstructive sleep apnea, while pertinent medical history does not include asthma or lung cancer. The patient is currently able to do activities of daily living without limitations, able to do housework without limitations and able to participate in sports with limitations (hunts). The patient was p reviously evaluated in this clinic 6 month(s) ago. Past evaluation has included chest x-ray, pulse oximetry, pulmonary function tests and pulmonology evaluation., [ADDITIONAL REASON] Sleep FU - The patient sleeps an average of 8 hours per night. Using Cpap and has no complaints (Mask and pressure are comfortable. Has been getting new mask and supplies throug h [employer] every 6 months. Has been wearing CPAP faithfully every night.). The patient feels less sleepy and has no complaints and has decreased energy level (due to new job and stress level). Imp act of disease: no overall impact. Nutrition: balanced diet. The amount of alcohol consumed is 2 drinks per month. Current medication use: compliant with dosing regimen. Encounter Diagnosis: COPD (CHRONIC OBSTRUCTIVE PULMONARY DISEASE) (496), SLEEP APNEA (780.57), OBESITY (278.00) Medication Order 31-Jul-2011 15:50 To 31-Jul-2011 15:55 Encounter Diagnosis: COPD (CHRONIC OBSTRUCTIVE PULMONARY DISEASE) (496) [facility] Office Visit 29-Apr-2011 13:42 To 29-Apr-2011 16:34 Encounter Reason: Sleep FU - The patient sleeps an average of 8 hours per night. Using Cpap and has no complaints (Mask and pressure are comfortable. HAs been getting new mask and supplies through [employer] every 6 [place] [facility] months. STates he started a new job in January and since has felt increasingly tired due to stress. Has been wearing CPAP faithfully every night.). The patient feels less sleepy and has no complain ts and has decreased energy level (due to new job and stress level). Impact of disease: no overall impact. Nutrition: balanced diet. The amount of alcohol consumed is 2 drinks per month. Current medication use: compliant with dosing regimen., [ADDITIONAL REASON] COPD - The last clinic visit was 12 month(s) ago. No changes in management were made at the last visit. Symptoms include dyspnea on exertion, wheezing, productive cough and clear sp utum production. The symptoms occur occasionally. The episodes occur weekly. The patient describes this as mild and worsening. Symptoms are exacerbated by activity. Symptoms are relieved by inhaler use and rest. Associated symptoms do not include fever, weakness, hemoptysis or chest pain. Current treatment includes inhaled short-acting beta-2 agonists and inhaled anticholinergics. By report there is g ood compliance with treatment, good tolerance of treatment and fair symptom control (symptoms have worsened over past year. Increased SOB with any exertion). Pertinent medical history includes shahidi ng (has quit) and obstructive sleep apnea, while pertinent medical history does not include asthma or lung cancer. The patient is currently able to do activities of daily living without limitations, abl e to work with limitations, able to do housework without limitations and able to participate in sports with limitations (Has difficulty breathing with exertion, goes hunting frequently in the fall and spring and has worsening SOB) . Encounter Diagnosis: COPD (CHRONIC OBSTRUCTIVE PULMONARY DISEASE) (496), SLEEP APNEA (780.57) Office Visit 23-Apr-2011 11:31 To 23-Apr-2011 13:43 [place] [facility] Payers [facility] [address] [address] [facility] [id number] Group Number: [id number] tel: RENEE DE LEON [address] tel:
--- OUTSIDE RECORDS SUMMARY | 2018-05-16 15:06 | XMS REPORT ---
:1950 External Reference #:[id number] Author Organization [facility], [facility] Address [address] [place] [address] Phone [phone] Care Team Providers Name Role Phone Partha Wade M.D. Care Team Information Lifeline Representatives Unavailable Partha Wade M.D. Primary Care Physician Unavailable Payers Type Date Identification Numbers Payment Provider Subscriber Commercial Policy Number: [id number] [employer] Micky Ordonez Group Number: [id number] [address] [address] PayID: [id number] [place] [address] Problems Description No Information Social History Description No Information Available Allergies, Adverse Reactions, Alerts Date Description Reaction Status Severity Comments 03/12/2017 Codeine active Medications Description No Information Vital Signs Date Vital Result Comment 03/12/2017 BP Systolic 132 mmHg BP Diastolic 100 mmHg 03/12/2017 Height 70 inches Weight 350.00 lb BMI (Body Mass Index) 50.2 kg/m2 BP Systolic 132 mmHg BP Diastolic 98 mmHg Heart Rate 68 /min Results Description No Information Procedures Date CPT Code Description Status 05/11/2017 95205 Echocardiography, Tranthoracic Real-Time Image Completed Documentation 05/11/2017 33097 Cardiovascular Stress Test Interpretation & Report Only Completed 05/11/2017 44876 Cardiovascular Stress Test Interpretation & Report Only Completed 05/11/2017 95853 Cardiovascular Stress Test Physician Supervision Only Completed 05/11/2017 64051 Cardiovascular Stress Test Physician Supervision Only Completed 05/11/2017 89655 Myocardial Perfusion Imaging Tomographic (Spect) Completed Multiple Studies 05/11/2017 95694 Myocardial Perfusion Imaging Tomographic (Spect) Completed Multiple Studies 03/12/2017 75391 Electrocardiogram Complete Completed Encounters Type Date Location Provider CPT E/M Dx Office Visit 03/12/2017 8:25a [facility] [address] R06.02 [place] E11.9 I65.23 R00.2 I49.3 I10 E66.09 G47.33 Plan of Care No Information Available
[2018-05-16 15:20] VITALS: BP 116/82
--- NOTE | 2018-05-16 16:11 | UC ---
Skin Complaint HPI - HPI Summary HPI Summary: PT HAD A PARTIAL L KNEE REPLACED ON 05/04/18. ON 05/13/18 THE FRONT OF HIS L LEG STARTED TO ITCH. HE NOW NOTES SOME RED SPOTS WHERE HE IS ITCHING. HE STATES THE KNEE AND LEG SWELLING ARE UNCHANGED FROM THE POST OP DATE. HE DENIES ANY CALF PAIN AND STATES "I HAVE NO PAIN IN THE JOINT". HE DENIES ANY FEVER AND HAS NO DRAINAGE ON THE DRESSING. HE CALLED HIS SURGEON AT [facility]. HE STATES THE OFFICE STAFF TOLD HIM TO GO TO THE ER. PT STATES HE DOES NOT WANT TO GO TO THE [place] ER AND [facility] ER IS TO FAR AWAY. HE HAS AN APPOINTMENT WITH DR MAZARIEGOS, HIS SURGEON THIS COMING WEDNESDAY IN [place]. - History of Current Complaint Chief Complaint: UCRash Time Seen by Provider: 05/16/18 15:12 Stated Complaint: RASH ON LEFT LEG/KNEE Hx Obtained From: Patient, Family/Sample Tester Grinder Onset/Duration: Gradual Onset Timing: Constant Pain Intensity: 2 Aggravating Factor(s): Nothing Alleviating Factor(s): Nothing Associated Signs & Symptoms: Positive: Rash. Negative: Fever, Chills, Red Streaks - Allergy/Home Medications Allergies/Adverse Reactions: Allergies Allergy/AdvReac Type Severity Reaction Status Date / Time codeine AdvReac GI Verified 05/16/18 15:05 Home Medications: Home Medications Ferrous Sulfate TAB* 65 mg PO BID 05/16/18 [History Confirmed 05/16/18] Metoprolol Tartrate TAB* [Lopressor TAB*] 25 mg PO DAILY 05/16/18 [History Confirmed 05/16/18] Rivaroxaban TAB(*) [Xarelto 20 mg] 20 mg PO DAILY 05/16/18 [History Confirmed ] oxyCODONE TAB* [Roxycodone TAB 5 mg*] 5 mg PO Q4H PRN 05/16/18 [History Confirmed 05/16/18] Review of Systems Constitutional: Negative Skin: Rash Eyes: Negative ENT: Negative Respiratory: Negative Cardiovascular: Negative Gastrointestinal: Negative Genitourinary: Negative Motor: Negative Neurovascular: Negative Musculoskeletal: Other: - SWELLING TO L KNEE/ADJACENT AREA IS UNCHANGES SINCE THE SURGERY Neurological: Negative Psychological: Negative Is Patient Immunocompromised?: No All Other Systems Reviewed And Are Negative: Yes PMH/Surg Hx/FS Hx/Imm Hx Endocrine History: Diabetes - PRE Cardiovascular History: Atrial Fibrillation Respiratory History: COPD - Surgical History Surgical History: Yes Surgery Procedure, Year, and Place: hydrocele. LEFT KNEE SURGERY 05/04/19 - Family History Known Family History: Positive: Unknown - Social History Lives: With Family Alcohol Use: Occasionally Substance Use Type: None Smoking Status (MU): Former Smoker When Did the Patient Quit Smoking/Using Tobacco: 30+ years ago - Immunization History Vaccination Up to Date: Yes Physical Exam Triage Information Reviewed: Yes Appearance: Well-Appearing Vital Signs: Initial Vital Signs Temp 98.4 F 05/16/18 15:11 Pulse 92 05/16/18 15:11 Resp 20 05/16/18 15:11 BP 116/82 05/16/18 15:11 Pulse Ox 96 05/16/18 15:11 Vital Signs Reviewed: Yes Eyes: Positive: Conjunctiva Clear ENT: Positive: Pharynx normal, TMs normal. Negative: Nasal congestion, Nasal drainage Neck: Positive: Supple, Nontender, No Lymphadenopathy Respiratory: Positive: Lungs clear, Normal breath sounds Cardiovascular: Positive: RRR, No Murmur Abdomen Description: Positive: Nontender, No Organomegaly, Soft, Other: - No inguinal adenopathy. Negative: Distended, Guarding Bowel Sounds: Positive: Present Musculoskeletal: Positive: Other: - LLE: mild swelling from the knee down. Tegaderm dressing with a thin strip of gauze over left anterior knee @ post op site with no drainage. there is yellowing bruising to the inferior knee. the pt has a folliculitis from mid anterior thigh to anterior lower leg and a few spots to back of leg in same areas as well. The spots rin. They are not blistering or peeling. there is no streaking to the leg. the leg and calf are non tender. he has full painless rom to the knee as well as above and below the joint. The foot has full s/v/m function. Neurological: Positive: Alert Psychological: Positive: Age Appropriate Behavior Skin Exam: Normal Course/Dx - Course Course Of Treatment: the rash is c/w a folliculitis. the is no fever, inguinal adenopathy or streaking. there is no concern for a septic joint or dvt. given the pattern or his rash, it may be an irritation from a surgical drape. i called [facility] in [place] and spoke to Shadia azevedo. she advised he may take otc benadryl per label for ithcing. he is to call them in the am and they will recheck his rash the same day 05/17/18. pt agrees to go to the ER for any worsening before tomorrow. - Diagnoses Provider Diagnoses: Acute rash/folliculitis L leg Discharge - Sign-Out/Discharge Documenting (check all that apply): Patient Departure All imaging exams completed and their final reports reviewed: No Studies - Discharge Plan Condition: Stable Disposition: HOME Patient Education Materials: Acute Rash (ED) Referrals: [facility] [Provider Group] - 1 Day Partha Wade MD [Primary Care Provider] - If Needed Additional Instructions: CALL [facility] IN [place] AT #[phone] IN AM (05/17/18). ADVISE THAT WE SPOKE TO SHADIA ZIMMERMAN WHO REQUEST YOU COME IN FOR A RECHECK THE SAME DAY 05/17/18. KEEP YOUR APPOINTMENT WITH DR MAZARIEGOS THIS COMING WEDNESDAY. GO TO THE ER IMMEDIATELY FOR ANY WORSENING SUCH JOINT PAIN, FEVER, STREAKING TO THE LEG OR DRAINAGE FROM THE KNEE OR WORSENING RASH. TAKE OVER THE COUNTER BENADRYL NEEDED FOR ITCHING. USE PER LABEL - Billing Disposition and Condition Condition: STABLE Disposition: Home
== END 2018-05-16 16:13 | disposition home or self-care (01) ==
LOC: UCCORT 13:56
DX: R21 Rash and other nonspecific skin eruption (principal); L73.9 Follicular disorder, unspecified; Z88.5 Allergy status to narcotic agent; Z96.652 Presence of left artificial knee joint; R73.03 Prediabetes; Z87.891 Personal history of nicotine dependence; Z98.890 Other specified postprocedural states
CPT/HCPCS: 99211; G0463